=== PATIENT | female | born 1985 | race American Indian/Alaskan Native ===

== ENCOUNTER 2024-05-12 19:23 | Observation (INO) | payer MEDICAID, SELFPAY ==
[2024-05-12] VITALS (7 sets, daily range): BP systolic 140–174; BP diastolic 95–123; PULSE 80–120; RESP 12–20; TEMP 36.2–36.4; O2SAT 93–100; BMI 18.3
--- NOTE | 2024-05-12 19:38 | EDNOTE_ITS ---
ED Overdose RME/HPI General Chief Complaint: Overdose Stated Complaint: OVERDOSE Time Seen by Provider: 05/12/24 19:37 Source: EMS Arrival date/time: 05/12/24 19:23 Mode of arrival: EMS RME / HPI RME / HPI Narrative: DR. WEBSTER MAIN ED EVALUATION: 39 year old female with past medical history significant for IV drug use presents to the Emergency Department [facility] with complaint of accidental drug overdose prior to arrival. Patient was found in a 'crackhouse' and found on the floor with a needle on her arm by police. Police gave Narcan because the patient had diminished breathing and mentation. EMS also gave more Narcan and patient is sleepy but arousable to voice. She answers 1-2 word answers even when encouraged to speak more. No complaints by the patient. Patient denies any suicidal ideation or other symptoms at this time. Related Data Previous Rx's ?Medication ?Instructions ?Recorded ascorbic acid (vitamin C) 250 mg 500 mg (2 x 250 mg) P O BID #60 tabs 11/28/20 tablet (Vitamin C) sulfamethoxazole 800 1 tab PO BID #20 tabs mg-trimethoprim 160 mg tablet (Bactrim DS) zinc sulfate 50 mg zinc (220 mg) 220 mg (4.4 x 50 mg z inc (220 mg)) 11/28/20 capsule PO QDAY #30 caps Allergies Allergy/AdvReac Type Severity Reaction Status Date / Time No Known Allergies Allergy Verified 11/11/23 15:22 Review of Systems Review of Systems Systems Reviewed: All systems reviewed, normal except as documented Past Medical History Past Medical History NEUROLOGIC: Negative Neurological Disorders, Cerebrovascular Accident, Transient Ischemic Attacks (TIA), Dementia, Alzheimer's Disease, Parkinson's Disease, Brain Tumor, Meningitis, Seizures, Epilepsy, Multiple Sclerosis, Cerebral Palsy, Amyotrophic Lateral Sclerosis (ALS/Rosalva Gehrig's), Guillain-[place] Syndrome, Spina Bifida, Paralysis, Peripheral Neuropathy, Hsieh's Palsy, Subdural Hematoma, Migraine, Head Trauma, Spinal Cord Injury or Traumatic Brain Injury CARDIAC: Negative Cardiac Disorders, Myocardial Infarction, Cardiac Arrhythmia, Atrial Fibrillation, Angina, Heart Murmur, Coronary Artery Disease, Atherosclerotic Heart Disease, Peripheral Vascular Disease, Hypercholesterolemia, Aneurysm, Congestive Heart Failure, Congenital Heart Disease, Valvular Heart Disease, Rheumatic Fever, Cardiomyopathy, Edema, Pericarditis, Cellulitis, Deep Vein Thrombosis, Hypertension, Hypotension or Varicose Veins RESPIRATORY: Positive Asthma; Negative Chronic Obstructive Pulmonary Disease (COPD), Bronchitis, Emphysema, Pneumonia, Pulmonary Fibrosis, Cystic Fibrosis, Pulmonary Embolism or Pulmonary Edema GASTROINTESTINAL: Negative Gastrointestinal Disorders, Cirrhosis, Pancreatitis, Celiac Disease, Gall Bladder Disease, Gastrointestinal Bleed, Esophageal Va rices, Starkey's Esophagus, Colitis, Ulcerative Colitis, Diverticulitis, Diverticulosis, Ulcer, Colorectal Cancer, Irritable Bowel, Crohn's Disease, Obstructive Bowel, Hiatal Hernia, Hemorrhoids, Gastroesophageal Reflux Disease or Obesity GENITOURINARY: Negative Genitourinary Disorders, Renal Disease, Kidney Stones, Polycystic Kidney Disease, Neurogenic Bladder, Inguinal Hernia, Dialysis, Prostate Cancer or Benign Prostatic Hyperplasia REPRODUCTIVE: Positive Previous Pregnancies; Negative Breast Cancer or Testicular Cancer MUSCULOSKELETAL: Negative Musculoskeletal Disorders, Muscular Dystrophy, Myasthenia Gravis, Marfan's Syndrome, Bone Cancer, Arthritis, Rheumatoid Arthritis, Osteoporosis, Degenerative Disk Disease, Gout, Scoliosis, Fibromyalgia, Fractures, Degenerative Joint Disease, Osteomyelitis or Poliovirus ENT: Negative Cataracts, Glaucoma, Blind, Retinal Detachment, Macular Degeneration, Ear Infection, Deafness, Head Trauma or Eye Prosthesis ENDOCRINE: Negative Endocrine Disorders, Diabetes Mellitus Type 1, Diabetes Mellitus Type 2, Hypoglycemia, [place]'s Syndrome, [place]'s Disease, Hyperthyroidism, Hypothyroidism, Parathyroid Disease, Pituitary Disease, Systemic Lupus Erythematosus, Syndrome of Inappropriate Antidiuretic Hormone (SIADH), Adrenal Disease or Graves' Disease HEMATOLOGIC: Negative Blood Disorders, Anemia, Leukemia, Hemophilia, Thalassemia, Sickle Cell Disease or Clotting Problems PSYCHO/SOCIAL: Negative Psychiatric Problems, Schizophrenia, Recreational Drug Use, Bipolar Disorder, Depression, Anxiety, Behavior Problems, Self-Mutilation, Attention Deficit Disorder, Attention Deficit Hyperactivity Disorder, Depression, Post Traumatic Stress Disorder or Eating Disorder OTHER HISTORY: Negative Autoimmune Disease, Autism, Blood Transfusions, Blood Transfusion Reaction, Anesthesia Reactions, Organ Transplant, Chemotherapy, Radiation Therapy, Hyperbaric Therapy, MRSA, VRSA, Human Immunodeficiency Virus (HIV), Chicken Pox, Measles, Mumps, Rubella (Tongan Measles), Pertussis, Clostridium Difficile, Cancer, Breast Cancer, Cervical Cancer, Colorectal Cancer, Lung Cancer, Ovarian Cancer, Prostate Cancer or Testicular Cancer Family History FAMILY HISTORY: Negative Family Psychiatric Problems, Family Respiratory Disorders, Family Cardiac Disorders, Family Gastrointestinal Problems, Family Cancer, Family Surgery or Family Anesthesia Reaction Surgical History SURGICAL: Positive Section; Negative Organ Transplant Social History SMOKING STATUS: Never smoker SUBSTANCE USE: methamphetamine ALCOHOL: Never ED Exam Narrative Physical exam: GENERAL APPEARANCE:? alert and oriented x 4, well-developed, well-nourished, no acute distress, patient is somnolent but arousable to voice HEENT: Normocephalic, atraumatic; pupils equal, round, reactive to light; EOMI; mucous membranes pink, moist; oropharynx clear NECK: Supple LUNGS: CTABL; no wheezes, no rales, no rhonchi HEART: Tachycardic, regular rhythm; normal S1, S2; no murmurs ABDOMEN: non distended; normal BS;? soft, no tenderness, no guarding, no rebound; no masses, no organomegaly, no hernia?? BACK:? no CVA tenderness EXTREMITIES:? atraumatic; no edema MUSCULOSKELETAL: No tenderenss along entire spine; no cervical spine tenderness, no thoracic spine tenderness, and no lumbar spine tenderness. NEUROLOGIC: awake; alert and oriented x4; cranial nerves II-XII grossly intact; no focal sensory or motor deficits PSYCHIATRIC:? appropriate mood and affect SKIN: warm, dry, normal color; no rashes; no sign of infections at all Course Course Course Narrative: 2116: Sepsis alert initiated. Orders made at this time are congruent with ED Adult Sepsis Order List. Re-evaluation is to be completed. 2133: Fluids started. 2203: Sepsis reassessment performed consisting of lab review, vitals, physical exam including auscultation of heart, lungs, and visual evaluation of capillary refills, mucosal membranes and extremities. 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 START 00 Care 05/12/24 20:16 Active Continuous Pulse Oximetry NOW Care 05/12/24 20:16 Completed IV [Insert IV] NOW Care 05/12/24 20:33 Active In and Out Catheter X1PRN Care 05/12/24 21:17 Active Insert IV NOW Care 05/12/24 21:17 Active NPO STAT Care 05/12/24 21:17 Active Strict Intake and Output Routine Care 05/12/24 21:[address] chest w con Stat Exams 05/12/24 21:[address] head/brain wo con Stat Exams 05/12/24 22:45 Completed XR chest 1V portable Stat Exams 05/12/24 21:16 Completed Acetaminophen Stat Lab 05/12/24 20:32 Completed Alcohol, Blood Medical Stat Lab 05/12/24 20:32 Completed Alcohol, Urine Stat Lab 05/12/24 19:41 Completed B-Type Natriuretic Peptide Stat Lab 05/12/24 20:32 Completed Basic Metabolic Panel Stat Lab 05/12/24 20:32 Completed Blood Culture (Lab) Stat Lab 05/12/24 21:45 Received CBC Stat Lab 05/12/24 20:32 Completed CMP [Comprehensive Metabolic Panel] Stat Lab 05/12/24 00:13 Completed Drug Screen,Urine Stat Lab 05/12/24 19:41 Completed HCG Qualitative,Urine Stat Lab 05/12/24 19:41 Completed LDH (Lactate Dehydrogenase) Stat Lab 05/12/24 20:32 Completed Lactate (Lactic Acid) Stat Lab 05/12/24 21:45 Completed Lactic Acid, 3 HR Stat Lab 05/13/24 01:11 Completed Lipase Stat Lab 05/12/24 20:32 Completed Magnesium Stat Lab 05/12/24 20:32 Completed Partial Thromboplastin Time Stat Lab 05/12/24 20:32 Completed Phosphorous Stat Lab 05/12/24 20:32 Completed Procalcitonin Stat Lab 05/12/24 20:32 Completed Prothrombin Time with INR Stat Lab 05/12/24 20:32 Completed Salicylate Stat Lab 05/12/24 20:32 Completed Troponin I Stat Lab 05/12/24 20:32 Completed Urinalysis Stat Lab 05/12/24 19:41 Completed Urine Culture Stat Lab 05/12/24 19:41 Received VBG [Venous Blood Gas] Stat Lab 05/12/24 21:45 Completed Dextrose 50% Syr [D50w Syringe Abboject] Med 05/12/24 21:28 Discontinued 50 ml IV X1 ONE Doxycycline Inj [Vibramycin Inj] 100 mg Med 05/12/24 21:35 Discontinued Sodium Chloride 0.9% (Pop) [NS 0.9% mini bag] 100 ml IV X1 Ondansetron Inj [Zofran Inj] Med 05/12/24 21:28 Discontinued 4 mg IV X1 ONE Piper/Tazo Inj [Zosyn Inj] 4.5 gm Med 05/12/24 21:20 Discontinued Sodium Chloride 0.9% [Ns] 100 ml IV X1 Sodium Chloride 0.9% 1000 ml [Ns] 1,000 ml Med 05/12/24 20:16 Discontinued IV 999 mls/hr Sodium Chloride 0.9% 1000 ml [Ns] 2,055 ml Med 05/12/24 21:16 Discontinued IV 2,055 mls/hr Vancomycin Inj 1,000 mg Med 05/13/24 00:54 Discontinued Sodium Chloride 0.9% 250 ml [Ns] 250 ml IV X1 cefTRIAXone [Rocephin] 1,000 mg Med 05/12/24 21:19 Discontinued SODIUM CHLORIDE 0.9% (Popper) [Ns 0.9% (P)] 50 ml IV X1 hydrALAZINE INJ [Apresoline Inj] Med 05/12/24 21:04 Discontinued 10 mg IV X1 ONE Oxygen Delivery NOW RT 05/12/24 21:17 Active Reevaluation(s) Reevaluation #1: Patient is somnolent but arousable to voice. However, she answers 1-2 word answers even when encouraged to speak more. No complaints by the patient. Blood glucose is 54. Time: 21:25 Vital Signs Vital signs: Vital Signs Temperature 97.1 F 05/12/24 19:37 Pulse Rate 108 H 05/12/24 19:37 Respiratory Rate 18 05/12/24 19:37 Blood Pressure 140/104 H 05/12/24 19:37 Pulse Oximetry (%) 97 05/12/24 19:37 Oxygen Delivery Method Room Air 05/12/24 19:37 Procedures -ED EKG Interpretation #1: Date of EK05/12/24 Time of EK:22 Rate: 121 Interpretation: Interpreted by me Additional EKG comment: sinus tachycardia, rate 121, normal axis, no ectopy, LVH, QTc 371, QRS 88 Overdose MDM Narrative MDM Narrative:: 00:[address] Cleary regarding the pt. He kindly agreed to see the pt for possible admission. Pt has sepsis without a source. She most likely has endocarditis. I've ordered vanco IV and pt has already received zosyn and doxy IVPB. I, Anna Catalan, am scribing for and in the presence of Dr. Webster. Patient data External records reviewed:: EMS form Clinical information provided by:: patient and EMS Social determinants that could affect healthcare access:: substance use (IV drug use) Patient has the following chronic illnesses:: IV drug use How is presenting disease/condition affected by chronic disease/condition?: caused by Evaluation data The following diagnostics were reviewed and interpreted by me:: lab results and radiology exam(s) Lab and/or radiology exams considered but not ordered:: none Interpretation Summary: Leukocytosis, WBC 26 Hypoglycemia, blood glucose 41 1 view portable chest xray My interpretation: bilateral perihilar infiltrates, bronchitis pattern, no diaphragmatic edge Examination: CT brain head without contrast. Date and time of exam:May 12, 2024, 11:21 PM Indications: Altered mental status today Findings: No significant ventricular enlargement. Intra-axial or extra-axial hemorrhage density is not seen. No mass effect or midline shift Basal cisterns are not remarkable. Fourth ventricle is midline. Cranial vault intact. Significant chronic sinusitis Impression: Negative for acute hemorrhage, mass effect or midline shift Dictated By: Jason Siegel MD Examination: CT chest with intravenous contrast Exam date and time: May 12, 2024, 11:26 PM Indications: Coughing beginning 3 days ago Findings: No thoracic aortic aneurysm No pulmonary artery filling defects No paratracheal tracheobronchial or bronchopulmonary adenopathy 7 mm calcified nodule left lower lobe image 103 6 mm calcified pulmonary nodule lower lobe image 237 No pulmonary edema or pneumonia Pneumobilia Absent gallbladder Liver is mildly irregular in contour No pancreatic mass or peripancreatic edema Moderate scarring left kidney Bilateral old rib fractures Impression: Negative for thoracic aortic aneurysm Negative for pulmonary artery emboli No mediastinal lymphadenopathy No pneumonia or pulmonary edema Dictated By: Jason Siegel MD Examination: AP chest single view Exam date and time: May 12, 2024 at 8:20 PM Indications: Coughing chest pain today Findings: Normal heart size Lungs are clear The osseous structures are intact, old appearing bilateral rib fractures Impression: No active disease Dictated By: Jason Siegel MD Medications / Prescriptions Medications or Prescriptions considered but not ordered:: none Medication administrations:: Medication Administration History Acetaminophen (Acetaminophen 325 Mg Tablet) 650 mg PO Q6H PRN PRN Reason: Fever >100 or pain 1-3 Stop: 06/12/24 02:29 Heparin Sodium (Porcine) (Heparin Sod Inj 5000 Unit/Ml Vial) 5,000 unit SC Q12H [facility] Stop: 05/27/24 08:59 Potassium Chloride (Kcl Ivpb) 10 meq in 100 mls @ 100 mls/hr IV Q1H [facility] Stop: 05/13/24 07:14 Last Admin: 05/13/24 04:58 Dose: 100 mls/hr Documented By: Infusion: 05/13/24 04:53 Dose: Infused Documented By: Admin: 05/13/24 03:53 Dose: 100 mls/hr Documented By: SIMRAN Ceftriaxone Sodium 2,000 mg/ (Sodium Chloride) 50 mls @ 100 mls/hr IV QDAY [facility] Stop: 05/20/24 05:06 Pharmacy Consult (Vancomycin Pharmacy To Dose 1 Each Each) 1 each IV QDAY [facility] Stop: 06/12/24 08:59 Discontinued Medications Dextrose (Dextrose 50%-Water Inj 50 Ml Syringe) 50 ml IV X1 ONE Stop: 05/12/24 21:29 Last Admin: 05/12/24 21:44 Dose: 50 ml Documented By: SIMRAN Hydralazine HCl (Hydralazine Inj 20 Mg/Ml Vial) 10 mg IV X1 ONE Stop: 05/12/24 21:05 Last Admin: 05/12/24 21:40 Dose: 10 mg Documented By: SIMRAN Sodium Chloride (Ns) 1,000 mls @ 999 mls/hr IV .Q1H1M ONE Stop: 05/12/24 21:16 Last Infusion: 05/12/24 21:36 Dose: Infused Documented By: Admin: 05/12/24 20:35 Dose: 999 mls/hr Documented By: LB Sodium Chloride (Ns) 2,055 mls @ 2,055 mls/hr 30 ml/kg infuse over 60 min (2055 ml) IV .Q1H ONE Stop: 05/12/24 22:15 Last Infusion: 05/12/24 22:34 Dose: Infused Documented By: Admin: 05/12/24 21:34 Dose: 2,055 mls/hr Documented By: SIMRAN Ceftriaxone Sodium 1,000 mg/ (Sodium Chloride) 50 mls @ 100 mls/hr IV X1 ONE Stop: 05/12/24 21:48 Piperacillin Sod/Tazobactam (Sod 4.5 gm/ Sodium Chloride) 100 mls @ 200 mls/hr IV X1 ONE Stop: 05/12/24 21:49 Last Infusion: 05/12/24 22:18 Dose: Infused Documented By: Admin: 05/12/24 21:48 Dose: 200 mls/hr Documented By: SIMRAN Doxycycline Hyclate 100 mg/ (Sodium Chloride) 100 mls @ 100 mls/hr IV X1 ONE Stop: 05/12/24 22:34 Last Infusion: 05/12/24 23:56 Dose: Infused Documented By: Admin: 05/12/24 22:56 Dose: 100 mls/hr Documented By: SIMRAN Vancomycin HCl 1,000 mg/ (Sodium Chloride) 250 mls @ 150 mls/hr IV X1 ONE Stop: 05/13/24 02:33 Last Admin: 05/13/24 01:24 Dose: 150 mls/hr Documented By: SIMRAN Ondansetron HCl (Ondansetron Inj 2 Mg/Ml Inj 2 Ml) 4 mg IV X1 ONE; Protocol Stop: 05/12/24 21:29 Last Admin: 05/12/24 21:39 Dose: 4 mg Documented By: SIMRAN Potassium Chloride (Potassium Chloride 20 Meq Tabcr) 40 meq PO X1 ONE Stop: 05/13/24 02:36 Last Admin: 05/13/24 03:50 Dose: Not Given Documented By: SIMRAN Non-Admin Reason: Discontinued see above if any Consultations Consultation(s) initiated? (list below): Yes Consultation #1 (Physician, Specialty, Details): see narrative Diagnosis Overdose Differential Diagnosis: poisoning by opiate or related narcotic, drug overdose, accidental drug ingestion and other (methamphetamine abuse) Most likely diagnosis given after review of the tests above:: Endocarditis Leukocytosis Hypoglycemia Sepsis Admission Indicated Admission indicated?: indicated Admission Request Was there a request for admission?: Yes Admission Attestation Admission request attestation: Discussed case with [] from Hospitalist service regarding admission. Discussed patients ED course, exam findings, labs, and radiology results. The Hospitalist [agrees,declines] to accept the patient for admission. Disposition Plan Disposition Plan: Admit Critical Care Time Critical Care Time Critical Care Time: Yes Total Critical Care Time (min.): 30 Attestation: The high probability of sudden, clinically significant deterioration in the patient?s condition required the highest level of my preparedness to intervene urgently. The services I provided to this patient were to treat and/or prevent clinically significant deterioration. Services included the following: chart data review, reviewing nursing notes and/or old charts, documentation time, home service consultant collaboration regarding findings and treatment options, medication orders and management, direct patient care, vital sign assessments and ordering, interpreting and reviewing diagnostic studies and lab tests. Aggregate critical care time includes only time during which I was engaged in work directly related to the patient?s care, as described above, whether at bedside or elsewhere in the Emergency Department. It did not include time spent performing other reported procedures or the services of residents, students, nurses or physician assistants. Discharge Plan Plan Patient Disposition: Admit Acute Care w/in Hospital Problem List Clinical Impression: Endocarditis, Leukocytosis, Hypoglycemia, Sepsis
[2024-05-12 20:24] LABS: HCG Qualitative,Urine Negative
[2024-05-12] MEDS: SODIUM CHLORIDE 0.9% 1000 ML 1,000 ML 999 ML IV (20:35)
[2024-05-12 20:43] LABS: Basophils # (Auto) 0.1 Thou/mm3 (0.0-0.2); Basophils % (Auto) 0 % (0-2.5); Eosinophils % (Auto) 0 % (0-10); Hematocrit 37.5 % (36.0-46.0); Hemoglobin 11.3 g/dL (12.0-16.0); Immature Granulocytes % (Auto) 0 % (0-0); Immature Granulocytes Auto 0.11 Thou/mm3 (0.00-0.00); Lymphocytes # (Auto) 0.9 Thou/mm3 (1.0-4.8); Lymphocytes % (Auto) 4 % (10-50); Mean Corpuscular HGB Conc 30.1 g/dl (31.0-37.0); Mean Corpuscular Hemoglobin 22.1 pg (25.0-35.0); Mean Corpuscular Volume 73 fL (80-100); Monocytes % (Auto) 8 % (0-12); Neutrophils # (Auto) 22.9 Thou/mm3 (1.8-7.7); Neutrophils % (Auto) 88 % (37-80); Nucleated Red Blood Cell % 0 /100 WBC (0); Platelet Count 398 Thou/mm3 (140-440); RDW Standard Deviation 49.1 fL (36.4-46.3); Red Blood Count 5.11 Miln/mm3 (4.00-5.20)
[2024-05-12 21:11] LABS: Acetaminophen < 2.0 mcg/mL (10.0-20.0); Alcohol, Blood Medical < 3.0 mg/dL (0-10.0); Anion Gap 13 (7-16); BUN/Creatinine Ratio 18 Ratio (12-20); Blood Urea Nitrogen 21 mg/dL (9-23); Calcium 10.1 mg/dL (8.3-10.6); Carbon Dioxide 23.4 mMol/L (20.0-31.0); Chloride 110 mMol/L (98-107); Creatinine (Component) 1.2 mg/dL (0.6-1.3); Estimated Creatinine Clearance 57.1 mL/min (>60); Osmolality,Calculated 290 (275-295); Potassium 3.6 mMol/L (3.4-5.1); Salicylate < 3.0 mg/dL; Sodium 146 mMol/L (136-145); eGFR 59 See Note
[2024-05-12 21:14] LABS: Glucose 41 mg/dL (74-106)
--- NOTE | 2024-05-12 21:16 | XR_ITS ---
Examination: AP chest single view Technique: AP portable semiupright chest single view Exam date and time: May 12, 2024 at 8:20 PM Indications: Coughing chest pain today Findings: Normal heart size Lungs are clear The osseous structures are intact, old appearing bilateral rib fractures Impression: No active disease
--- NOTE | 2024-05-12 21:17 | PC.NURSE ---
Sepsis alert called.
[2024-05-12 21:24] LABS: Alcohol, Urine Negative (Negative); Amphetamine/Methamp Scrn,U Positive (Negative); Barbiturate Screen,Urine Negative (Negative); Benzodiazepines Screen,Urine Negative (Negative); Benzoylecgonine Screen, Ur Negative (Negative); Fentanyl Screen,Urine Positive (Negative); Opiate Screen,Urine Negative (Negative); THC Screen,Urine Positive (Negative)
--- NOTE | 2024-05-12 21:33 | XR_ITS ---
Examination: CT chest with intravenous contrast 2-D sagittal and coronal reconstructions Exam date and time: May 12, 2024, 11:26 PM Indications: Coughing beginning 3 days ago CTDI:vol (mGy) 8.5 DLP: (mGycm) 294 Technique: Multiple axial sections of the thorax have been obtained. Sections have been obtained, 3 mm slice thickness. Mediastinal and lung density settings have been obtained. Intravenous contrast administered, 60 cc Isovue-370. 2-D sagittal, coronal images obtained. Low dose protocols were performed. One or more of the following dose reduction techniques were used; automated exposure control, adjustment of the mA and/or KV according to patient size, use of iterative reconstruction technique. Findings: No thoracic aortic aneurysm No pulmonary artery filling defects No paratracheal tracheobronchial or bronchopulmonary adenopathy 7 mm calcified nodule left lower lobe image 103 6 mm calcified pulmonary nodule lower lobe image 237 No pulmonary edema or pneumonia Pneumobilia Absent gallbladder Liver is mildly irregular in contour No pancreatic mass or peripancreatic edema Moderate scarring left kidney Bilateral old rib fractures Impression: Negative for thoracic aortic aneurysm Negative for pulmonary artery emboli No mediastinal lymphadenopathy No pneumonia or pulmonary edema
[2024-05-12] MEDS: SODIUM CHLORIDE 0.9% 2055 ML IV (21:34)
[2024-05-12] MEDS: ONDANSETRON INJ 2 MG/ML INJ 2 ML 4 MG IV (21:39)
[2024-05-12] MEDS: hydrALAZINE INJ 20 MG/ML VIAL 10 MG IV (21:40)
[2024-05-12] MEDS: DEXTROSE 50%-WATER INJ 50 ML SYRINGE IV (21:44)
[2024-05-12] MEDS: PIPER/TAZO INJ 4.5 GM in SODIUM CHLORIDE 0.9% 100 ML IV (21:48)
[2024-05-12 21:53] LABS: Base Excess, Venous -4 (-3-3); Lactate (Lactic Acid) 3.2 mMol/L (0.4-2.0); O2 Saturation, Venous 86 % (96-97); PCO2, Venous 48 mmHg (36-56); PO2, Venous 58 mmHg (15-58); pH, Venous 7.28 (7.33-7.66)
[2024-05-12 22:07] LABS: Partial Thromboplastin Time 22.2 Seconds (22.0-36.0); Prothrombin Time 11.1 Seconds (9.0-12.2)
[2024-05-12 22:14] LABS: Collection Type, Urine Clean Catch; WBC,Urine 0 /hpf (0-5)
[2024-05-12 22:25] LABS: Bacteria,Urine Rare; Bilirubin,Urine Negative (Negative); Blood,Urine Trace (Negative); Clarity,Urine Turbid (Clear/Hazy); Color,Urine Lt-Yellow (Lt Yel-Yel); Glucose, Urine Trace (Negative); Ketones,Urine Negative (Negative); Leukocyte Esterase,Urine Negative (Negative); Nitrite,Urine Negative (Negative); PH,Urine 6.5 (5.0-7.0); Protein,Urine 1+ (Neg - Trace); RBC,Urine 2 /hpf (0-3); Specific Gravity,Urine 1.017 (1.001-1.035); Squamous Epithelial Cell,Urine 2 /hpf (0-5); Urobilinogen,Urine Negative mg/dL (0.0-1.0)
[2024-05-12 22:33] LABS: B-Type Natriuretic Peptide < 20 pg/mL (0-100)
[2024-05-12 22:39] LABS: LDH (Lactate Dehydrogenase) 625 U/L (120-246); Lipase 41 U/L (12-53); Magnesium 2.4 mg/dL (1.6-2.6); Phosphorous 6.2 mg/dL (2.4-5.1); Procalcitonin 0.13 ng/ml (0.0-0.49)
[2024-05-12 22:41] LABS: Troponin I 0.069 ng/mL (0.0-0.045)
--- NOTE | 2024-05-12 22:45 | XR_ITS ---
Examination: CT brain head without contrast. 2-D sagittal coronal reconstructions Date and time of exam:May 12, 2024, 11:21 PM Indications: Altered mental status today CTDI: vol (mGy):50.4 DLP: (mGycm):990 Technique: Multiple CT axial sections of the brain have been obtained, 5 mm slice thickness. Contrast has not been administered. 2-D sagittal, coronal reconstructions have been obtained Low dose protocols were performed. One or more of the following dose reduction techniques were used; automated exposure control, adjustment of the mA and/or KV according to patient size, use of iterative reconstruction technique. Findings: No significant ventricular enlargement. Intra-axial or extra-axial hemorrhage density is not seen. No mass effect or midline shift Basal cisterns are not remarkable. Fourth ventricle is midline. Cranial vault intact. Significant chronic sinusitis Impression: Negative for acute hemorrhage, mass effect or midline shift
[2024-05-12] MEDS: DOXYCYCLINE INJ 100 MG in SODIUM CHLORIDE 0.9% (POP) 100 ML IV (22:56)
--- NOTE | 2024-05-12 23:17 | PC.NURSE ---
To ct-scan via gurney.
[2024-05-13] VITALS (28 sets, daily range): BP systolic 112–190; BP diastolic 79–123; PULSE 59–86; RESP 9–96; TEMP 36–36.8; O2SAT 93–100
[2024-05-13 00:50] LABS: Reflex Lactate? Y
[2024-05-13 01:00] LABS: Alanine Aminotransferase 292 U/L (10-49); Albumin, Serum 3.9 gm/dL (3.5-5.0); Albumin/Globulin Ratio 1.4 (1.2-2.2); Alkaline Phosphatase 94 U/L (46-116); Anion Gap 8 (7-16); Aspartate Amino Transferase 542 U/L (0-34); BUN/Creatinine Ratio 20 Ratio (12-20); Bilirubin,Total 0.3 mg/dL (0.3-1.2); Blood Urea Nitrogen 18 mg/dL (9-23); Calcium 8.1 mg/dL (8.3-10.6); Calcium (Corrected) 8.2 mg/dL (8.5-10.1); Chloride 108 mMol/L (98-107); Creatinine (Component) 0.9 mg/dL (0.6-1.3); Estimated Creatinine Clearance 76.2 mL/min (>60); Globulin 2.7 gm/dL (2.3-3.5); Glucose 109 mg/dL (74-106); Osmolality,Calculated 282 (275-295); Potassium 4.2 mMol/L (3.4-5.1); Sodium 140 mMol/L (136-145); Total Protein 6.6 gm/dL (5.7-8.2); eGFR > 60 See Note
[2024-05-13] MEDS: Vancomycin Inj 1,000 MG in SODIUM CHLORIDE 0.9% 250 ML 250 ML 150 MG IV (01:24)
[2024-05-13 01:29] LABS: Lactic Acid, 3 HR 0.9 mMol/L (0.4-2.0)
--- NOTE | 2024-05-13 02:38 | ESHP_ITS ---
<Statement entered by Andrew Osorio MD - 05/15/24 22:59> 39-year-old female with polysubstance abuse (methamphetamine and opiate), MRSA thigh abscess status post I&D and recent cholecystitis/choledocholithiasis requiring transfer to [place] for ERCP who presents did with generalized weakness after patient was found obtunded and a chronic callus with IV by her hand and subsequently came into the ER. In the ER, patient was noted to have sepsis secondary to UTI versus bacteremia/endocarditis given IV drug use. Furthermore, patient also noted to have slight elevation transaminitis for which we will obtain further workup. As of now, plan to start Rocephin 2 g daily and vancomycin pending cultures and admit patient to telemetry. I reviewed above note and agree with findings and plans. I have also personally examined the patient with medicine team and went over assessment and plan with medical team including internal grinder set up operator and resident physician. Documentation for date of: 05/13/24 HPI History of Present Illness History of present illness: HPI is limited as patient is poor historian. Most of history obtained via chart review Pamela is a 39 y/o female with PMHx of polysubstance abuse (meth, opioids, THC), MRSA thigh abscess, cholecystitis sees possible requiring ERCP, was transferred to [facility]) who comes in after being found obtunded in a crack house with IV and high suspicion for drug use. She was found on the floor with an IV by her hand. Upon arrival to ED she was obtunded and was given Narcan by the police as well as EMS. She was apparently able to respond to some questions with verbal commands. Patient was requesting water that she was a bit nauseous. She did not want to speak much and just want to drink water. Denies any medical history or problems. She says she has no chest pain or shortness of breath. No other complaints at this time ED course: Came to the ED with temperature of 97.1, heart rate 108, respiratory of 18, blood pressure 140/104, saturating 97% on room air. He was worked up and was found to have a white count of 0.6, hemoglobin 11.3, platelets 398, sodium 146, potassium 3.6, BUN/creatinine 21 and 1.2 respectively, glucose 41, bicarb 23, VBG pH 7.28, pCO2 48, lactate 3.2, phosphorus 6.2, troponin 0.069, LDH 624, magnesium 2.4, lipase 41, T. bili 0.3, calcium 8.2 check fentanyl, meth, marijuana. Urinalysis showed rare bacteria. Patient was given 3 L normal saline, Zofran x 1, hydralazine 10 mg x 1, D50 x 1, Zosyn, Doxy, Vanco. Medicine was consulted and patient admitted to floors Past medical history: As above Surgical history limited Allergies: Limited Meds: Limited Family history: Limited Social history: Unable to determine where patient lives and other social factors, history of polysubstance abuse. Review of Systems Review of Systems Narrative Review of Systems: ROS is limited as otherwise negative unless stated directly in the HPI as patient is poor historian Exam Vital Signs Temp Pulse Resp BP Pulse Ox O2 Del Method O2 Flow Rate 98.2 F 75 18 124/89 H 95 Room Air 0 05/13/24 00:51 05/13/24 01:00 05/13/24 01:00 05/13/24 01:00 05/13/24 01:00 05/13/24 01:00 05/13/24 01:00 Narrative Exam Limited exam as patient does not want to be examined General: AAOx2, in mild distress, patient has buzzcut hairstyle, unable to answer majority of questions HEENT: Moist mucous membranes, PERRLA, pupils constricted, hair is shaved to buzzcut length Cardiovascular: Possible murmur heard over left upper sternal border, regular rate and rhythm, +2 radial pulses Pulmonary: CTAB bilat no cough, no wheezing GI: No tenderness to light or deep palpitation, no guarding, rigidity, rebound tenderness or distension Extremities: No presence of trace or pitting edema in lower extremities bilaterally, dorsalis pedis pulses +2 bilaterally, unable to fully visualize pack [place] Neuro: AAOx2 Psych: Uncooperative Results: Labs 05/13/24 03:08 05/13/24 03:08 Labs: Short CBC 05/12/24 Range/Units 20:32 WBC 26.0 H (3.6-11.0) Thou/mm3 Hgb 11.3 L (12.0-16.0) g/dL Hct 37.5 (36.0-46.0) % Plt Count 398 (140-440) Thou/mm3 BMP 05/12/24 05/12/24 00:13 20:32 Sodium 140 146 H Potassium 4.2 3.6 D Chloride 108 H 110 H Carbon Dioxide 24.0 23.4 BUN 18 21 Creatinine 0.9 1.2 Glucose 109 H 41 L* D Calcium 8.1 L 10.1 D Cardiac Enzymes 05/12/24 Range/Units 20:32 Troponin I 0.069 H* (0.0-0.045) ng/mL Liver Function 05/12/24 Range/Units 00:13 Total Bilirubin 0.3 (0.3-1.2) mg/dL AST 542 H* (0-34) U/L ALT 292 H (10-49) U/L Alkaline Phosphatase 94 (46-116) U/L Albumin 3.9 (3.5-5.0) gm/dL Urine 05/12/24 Range/Units 19:41 Urine Color Lt-Yellow (Lt Yel-Yel) Urine Clarity Turbid A (Clear/Hazy) Urine pH 6.5 (5.0-7.0) Ur Specific [place] 1.017 (1.001-1.035) Urine Protein 1+ A (Neg - Trace) Urine Glucose (UA) Trace (Negative) ABG Interpretation ABG results: 05/12/24 21:45 VBG pH 7.28 L VBG pCO2 48 VBG pO2 58 VBG Base Excess -4 L Quality Measures Quality Measures sepsis Current suspected stage: sepsis Possible source: unknown Blood cultures ordered: yes Antibiotic ordered: Yes Medications Home Medications and Allergies Allergies Allergy/AdvReac Type Severity Reaction Status Date / Time No Known Allergies Allergy Verified 11/11/23 15:22 Visit Medications Acetaminophen (Acetaminophen 325 Mg Tablet) 650 mg PO Q6H PRN PRN Reason: Fever >100 or pain 1-3 Stop: 06/12/24 02:29 Heparin Sodium (Porcine) (Heparin Sod Inj 5000 Unit/Ml Vial) 5,000 unit SC Q12H JOSIAH Stop: 05/27/24 08:59 Potassium Chloride (Potassium Chloride 20 Meq Tabcr) 40 meq PO X1 ONE Stop: 05/13/24 02:36 Discontinued Medications Dextrose (Dextrose 50%-Water Inj 50 Ml Syringe) 50 ml IV X1 ONE Stop: 05/12/24 21:29 Last Admin: 05/12/24 21:44 Dose: 50 ml Hydralazine HCl (Hydralazine Inj 20 Mg/Ml Vial) 10 mg IV X1 ONE Stop: 05/12/24 21:05 Last Admin: 05/12/24 21:40 Dose: 10 mg Sodium Chloride (Ns) 1,000 mls @ 999 mls/hr IV .Q1H1M ONE Stop: 05/12/24 21:16 Last Infusion: 05/12/24 21:36 Dose: Infused Sodium Chloride (Ns) 2,055 mls @ 2,055 mls/hr 30 ml/kg infuse over 60 min (2055 ml) IV .Q1H ONE Stop: 05/12/24 22:15 Last Infusion: 05/12/24 22:34 Dose: Infused Ceftriaxone Sodium 1,000 mg/ (Sodium Chloride) 50 mls @ 100 mls/hr IV X1 ONE Stop: 05/12/24 21:48 Piperacillin Sod/Tazobactam (Sod 4.5 gm/ Sodium Chloride) 100 mls @ 200 mls/hr IV X1 ONE Stop: 05/12/24 21:49 Last Infusion: 05/12/24 22:18 Dose: Infused Doxycycline Hyclate 100 mg/ (Sodium Chloride) 100 mls @ 100 mls/hr IV X1 ONE Stop: 05/12/24 22:34 Last Infusion: 05/12/24 23:56 Dose: Infused Vancomycin HCl 1,000 mg/ (Sodium Chloride) 250 mls @ 150 mls/hr IV X1 ONE Stop: 05/13/24 02:33 Last Admin: 05/13/24 01:24 Dose: 150 mls/hr Ondansetron HCl (Ondansetron Inj 2 Mg/Ml Inj 2 Ml) 4 mg IV X1 ONE; Protocol Stop: 05/12/24 21:29 Last Admin: 05/12/24 21:39 Dose: 4 mg Assessment & Plan Plan Assessment Pamela is a 39 y/o female with PMHx of polysubstance abuse (meth, opioids, THC), MRSA thigh abscess, cholecystitis sees possible requiring ERCP, was transferred to [facility]) who is evaluated for SIRS criteria 2 out of 4, and elevated troponin. #SIRS criteria, 2 out of 4 #History of MRSA abscess DDx: Bloodstream infection, endocarditis, UTI Patient does have high risk for bloodstream infections and including endocarditis due to IV drug history UTI did show rare bacteria however, unable to determine if patient is symptomatic and also patient does not have leukocyte esterase or nitrates Patient has had positive MRSA thigh abscess in the past Vitals can be scattered due to patient having polysubstances seen in urine drug screen Patient will need MRSA and broad coverage, will cover with antibiotics as if this is endocarditis Attempted for [place] criteria for endocardit UTI patient is high risk for 1 patient is at high risk for Plan: ? Rocephin 2 g IV and Vanco ? Follow-up MRSA screen ? Follow-up blood cultures ? Follow-up urine culture ? Tylenol for antipyretics ? TTE #Elevated troponins .069 -> 0.100 Patient is experiencing chest pain, likely related to demand ischemia Plan: ? Trend troponin until peak #Elevated transaminases #Elevated ALP #History of cholecystitis AST 542 and ALT 292, could be related to overdose, shock ~600s for ALP High risk for hepatitis considering drug history Possible episode of cholecystitis may have required ERCP as there was documentation the patient was transferred as patient had dilatation of CBD Patient is at high risk for clots in unusual sites of liver as patient does have drug history Imaging will be required to measure liver vasculature Plan: ? Trend with CMP ? Hepatitis panel ? Consider measuring Tylenol level ? Follow up Liver ultrasound #Hyperphosphatemia #Hypocalcemia Plan: ? PTH ? Trend lytes #Drug Overdose #Polysubstance abuse Urine drug screen shows fentanyl, THC, meth Patient was found obtunded with IV near hand Was given Narcan twice Plan: ? Consider social media intern referral #Health Maintenance Disposition: Observation?telemetry DVT prophylaxis: Heparin every 12 hours GI prophylaxis: None indicated at this time Diet: Pending swallow eval CODE STATUS: Full Patient seen and care discussed with my attending physician, Dr. Devon Yeung, PGY-1
[2024-05-13 03:13] LABS: Basophils % (Auto) 0 % (0-2.5); Eosinophils % (Auto) 0 % (0-10); Hematocrit 32.1 % (36.0-46.0); Hemoglobin 9.8 g/dL (12.0-16.0); Immature Granulocytes % (Auto) 0 % (0-0); Immature Granulocytes Auto 0.05 Thou/mm3 (0.00-0.00); Lymphocytes # (Auto) 1.1 Thou/mm3 (1.0-4.8); Lymphocytes % (Auto) 5 % (10-50); Mean Corpuscular HGB Conc 30.5 g/dl (31.0-37.0); Mean Corpuscular Volume 72 fL (80-100); Monocytes # (Auto) 0.6 Thou/mm3 (0.0-0.8); Monocytes % (Auto) 3 % (0-12); Neutrophils # (Auto) 18.9 Thou/mm3 (1.8-7.7); Neutrophils % (Auto) 92 % (37-80); Nucleated Red Blood Cell % 0 /100 WBC (0); Platelet Count 287 Thou/mm3 (140-440); RDW Standard Deviation 47.7 fL (36.4-46.3); Red Blood Count 4.45 Miln/mm3 (4.00-5.20); White Blood Count 20.6 Thou/mm3 (3.6-11.0)
[2024-05-13] MEDS: POTASSIUM CHL 10 mEq IVPB 10 MEQ/100 ML BAG 100 MEQ IV ×3 (03:53→06:07)
[2024-05-13 03:58] LABS: Alanine Aminotransferase 279 U/L (10-49); Albumin, Serum 3.9 gm/dL (3.5-5.0); Albumin/Globulin Ratio 1.4 (1.2-2.2); Alkaline Phosphatase 92 U/L (46-116); Anion Gap 8 (7-16); Aspartate Amino Transferase 422 U/L (0-34); BUN/Creatinine Ratio 20 Ratio (12-20); Bilirubin,Total 0.3 mg/dL (0.3-1.2); Blood Urea Nitrogen 18 mg/dL (9-23); Calcium 8.2 mg/dL (8.3-10.6); Calcium (Corrected) 8.3 mg/dL (8.5-10.1); Carbon Dioxide 25.2 mMol/L (20.0-31.0); Cardiac Risk Estimate 2.1 RATIO (3.7-5.6); Chloride 108 mMol/L (98-107); Cholesterol 118 mg/dL (132-200); Creatinine (Component) 0.9 mg/dL (0.6-1.3); Estimated Creatinine Clearance 76.2 mL/min (>60); Globulin 2.8 gm/dL (2.3-3.5); Glucose 107 mg/dL (74-106); HDL Cholesterol 57 mg/dL (40-60); LDL Cholesterol,Calculated 54 mg/dL (0-130); Magnesium 1.8 mg/dL (1.6-2.6); Osmolality,Calculated 283 (275-295); Potassium 4.2 mMol/L (3.4-5.1); Sodium 141 mMol/L (136-145); Thyroid Stimulating Hormone 0.45 uIU/mL (0.55-4.78); Total Protein 6.7 gm/dL (5.7-8.2); Triglycerides 33 mg/dL (30-150); eGFR > 60 See Note
--- NOTE | 2024-05-13 05:59 | XR_ITS ---
Examination: Abdomen sonogram, complete Date and time of exam: May 13, 2024 1555 hrs. Indications: Elevated liver function tests on laboratory examination today. Technique: Multiple real-time grayscale transabdominal sonographic images of the abdomen have been obtained. Findings: No diagnostic visualization of the gallbladder Common bile duct 0.70 cm no stones. Pancreatic head 1.8 cm Aorta obscured by bowel gas Liver 13 cm no liver lesions Normal hepatopedal portal venous flow Patent IVC Right kidney 10.9 cm cortex 2.3 cm Left kidney 11.7 standard cortex 3.1 cm No hydronephrosis Spleen 10 cm Impression: Common bile duct 0.70 cm no stones No focal liver lesions
[2024-05-13] MEDS: CEFTRIAXONE IV (06:08)
[2024-05-13] MEDS: SODIUM CHLORIDE 0.9% IV (06:08)
--- NOTE | 2024-05-13 06:43 | PC.NURSE ---
K+ 4.2, Dr. Castillo [facility], In 4th k lisa.
[2024-05-13] MEDS: Magnesium Sulfate 2 GM Ivpb 2 GM/50 ML BAG IV (09:46)
[2024-05-13] MEDS: HEPARIN SOD INJ 5000 UNIT/ML VIAL SC ×2 (09:47→20:24)
[2024-05-13] MEDS: PANTOPRAZOLE INJ 40 MG VIAL IV (09:47)
[2024-05-13] MEDS: CALCIUM GLUCONATE 10% INJ 1 GM/10 ML VIAL IV (09:50)
--- NOTE | 2024-05-13 09:50 | PCS.ST ---
Swallow evaluation attempted. Pt presented emesis immediately after trials of water. Recommendation to continue NPO. Swallowing evaluation deferred for later today or tomorrow. Pt feeling nauseous, however, she continues requesting water. Few ice chips okay, no liquids.
[2024-05-13 10:03] LABS: Creatine Kinase 82 U/L (34-171); Troponin I 0.077 ng/mL (0.0-0.045)
--- NOTE | 2024-05-13 11:26 | ESPR_ITS ---
Documentation for date of: 05/13/24 Subjective Subjective Interval history: Patient is an overnight admit. Patient seen and examined at bedside. Patient states that she has been using IV meth for many years and switches from IV to smoking it from time to time. Patient states that she is feeling very nauseous and unable to talk very much. Patient did not pass swallow screen because she was unable to tolerate oral diet and was vomiting during swallow screen evaluation. Patient states that she has a headache as well and minimally engages in conversation and answering questions. Vitals are stable labs are significant for WBC 20.6, calcium 8.3 and phosphate 6.2. Patient has no complaints other than feeling nausea and headache. Exam Vital Signs Temp Pulse Resp BP Pulse Ox O2 Del Method O2 Flow Rate 96.8 F 70 18 124/80 96 Room Air 0 05/13/24 06:22 05/13/24 06:22 05/13/24 06:22 05/13/24 06:22 05/13/24 06:22 05/13/24 06:22 05/13/24 01:00 Narrative Exam GENERAL: A&Ox3 . Awake, Not in acute distress however, mildy agitated NEURO: no focal neurological deficits HEENT: Atraumatic, Normocephalic. mucous membranes moist. Eyes open, symmetrical, & clear HEART: Normal Heart Sounds LUNGS: Clear to auscultation with no wheezing or crackles. ABDOMEN: soft, non-distended, non-tender, bowel sounds heard, no guarding or rebound tenderness SKIN: No Rash or ecchymoses EXTREMITIES: No edema, tenderness, able to move all 4 extremities, pedal pulses palpated Objective Labs 05/15/24 04:10 05/15/24 04:10 Labs: Laboratory Results - last 24 hr 05/12/24 05/12/24 05/12/24 00:13 19:41 20:32 WBC 26.0 H RBC 5.11 Hgb 11.3 L Hct 37.5 MCV 73 L MCH 22.1 L MCHC 30.1 L RDW Std Deviation 49.1 H Plt Count 398 Neut % (Auto) 88 H Lymph % (Auto) 4 L [place] % (Auto) 8 Eos % (Auto) 0 Baso % (Auto) 0 Neut # (Auto) 22.9 H Lymph # (Auto) 0.9 L [place] # (Auto) 2.0 H Eos # (Auto) 0.0 Baso # (Auto) 0.1 Immature Gran # (Auto) 0.11 H Absolute Nucleated RBC 0.00 Immature Gran % 0 Nucleated RBC % 0 PT 11.1 INR 1.0 APTT 22.2 VBG pH VBG pCO2 VBG pO2 VBG O2 Sat (Deepali) VBG Base Excess Sodium 140 146 H Potassium 4.2 3.6 D Chloride 108 H 110 H Carbon Dioxide 24.0 23.4 Anion Gap 8 13 BUN 18 21 Creatinine 0.9 1.2 Estim Creat Clear Calc 76.2 57.1 L eGFR > 60 59 L BUN/Creatinine Ratio 20 18 Glucose 109 H 41 L* D Calculated Osmolality 282 290 Lactic Acid Calcium 8.1 L 10.1 D Corrected Calcium 8.2 L Phosphorus 6.2 H Magnesium 2.4 Total Bilirubin 0.3 AST 542 H* ALT 292 H Alkaline Phosphatase 94 Lactate Dehydrogenase 625 H Total Creatine Kinase Troponin I 0.069 H* B-Natriuretic Peptide < 20 Total Protein 6.6 Albumin 3.9 Globulin 2.7 Albumin/Globulin Ratio 1.4 Triglycerides Cholesterol LDL Cholesterol, Calc HDL Cholesterol Cholesterol/HDL Ratio Lipase 41 Procalcitonin 0.13 TSH Ur Collection Type Clean Catch Urine Color Lt-Yellow Urine Clarity Turbid A Urine pH 6.5 Ur Specific [place] 1.017 Urine Protein 1+ A Urine Glucose (UA) Trace Urine Ketones Negative Urine Blood Trace Urine Nitrite Negative Urine Bilirubin Negative Urine Urobilinogen (Auto) Negative Ur Leukocyte Esterase Negative Urine RBC 2 Urine WBC 0 Ur Squamous Epith Cells 2 Urine Bacteria Rare Urine HCG, Qual Negative Salicylates < 3.0 Urine Opiates Screen Negative Urine Fentanyl Screen Positive A Acetaminophen < 2.0 L Ur Barbiturates Screen Negative U Amphetamin/Meth Scrn Positive A U Benzodiazepines Scrn Negative U Cocaine Metab Screen Negative U Marijuana (THC) Screen Positive A Urine Alcohol Negative Ethyl Alcohol < 3.0 Blood Bank Wristband ID 05/12/24 05/13/24 05/13/24 21:45 01:11 03:08 WBC 20.6 H D RBC 4.45 Hgb 9.8 L Hct 32.1 L MCV 72 L MCH 22.0 L MCHC 30.5 L RDW Std Deviation 47.7 H Plt Count 287 D Neut % (Auto) 92 H Lymph % (Auto) 5 L [place] % (Auto) 3 Eos % (Auto) 0 Baso % (Auto) 0 Neut # (Auto) 18.9 H Lymph # (Auto) 1.1 [place] # (Auto) 0.6 Eos # (Auto) 0.0 Baso # (Auto) 0.0 Immature Gran # (Auto) 0.05 H Absolute Nucleated RBC 0.00 Immature Gran % 0 Nucleated RBC % 0 PT INR APTT VBG pH 7.28 L VBG pCO2 48 VBG pO2 58 VBG O2 Sat (Deepali) 86 L VBG Base Excess -4 L Sodium 141 Potassium 4.2 D Chloride 108 H Carbon Dioxide 25.2 Anion Gap 8 BUN 18 Creatinine 0.9 Estim Creat Clear Calc 76.2 eGFR > 60 BUN/Creatinine Ratio 20 Glucose 107 H D Calculated Osmolality 283 Lactic Acid 3.2 H 0.9 Calcium 8.2 L D Corrected Calcium 8.3 L Phosphorus Magnesium 1.8 Total Bilirubin 0.3 AST 422 H ALT 279 H Alkaline Phosphatase 92 Lactate Dehydrogenase Total Creatine Kinase Troponin I 0.100 H* B-Natriuretic Peptide Total Protein 6.7 Albumin 3.9 Globulin 2.8 Albumin/Globulin Ratio 1.4 Triglycerides 33 Cholesterol 118 L LDL Cholesterol, Calc 54 HDL Cholesterol 57 Cholesterol/HDL Ratio 2.1 L Lipase Procalcitonin TSH 0.45 L Ur Collection Type Urine Color Urine Clarity Urine pH Ur Specific [place] Urine Protein Urine Glucose (UA) Urine Ketones Urine Blood Urine Nitrite Urine Bilirubin Urine Urobilinogen (Auto) Ur Leukocyte Esterase Urine RBC Urine WBC Ur Squamous Epith Cells Urine Bacteria Urine HCG, Qual Salicylates Urine Opiates Screen Urine Fentanyl Screen Acetaminophen Ur Barbiturates Screen U Amphetamin/Meth Scrn U Benzodiazepines Scrn U Cocaine Metab Screen U Marijuana (THC) Screen Urine Alcohol Ethyl Alcohol Blood Bank Wristband ID 05/13/24 09:32 WBC RBC Hgb Hct MCV MCH MCHC RDW Std Deviation Plt Count Neut % (Auto) Lymph % (Auto) [place] % (Auto) Eos % (Auto) Baso % (Auto) Neut # (Auto) Lymph # (Auto) [place] # (Auto) Eos # (Auto) Baso # (Auto) Immature Gran # (Auto) Absolute Nucleated RBC Immature Gran % Nucleated RBC % PT INR APTT VBG pH VBG pCO2 VBG pO2 VBG O2 Sat (Deepali) VBG Base Excess Sodium Potassium Chloride Carbon Dioxide Anion Gap BUN Creatinine Estim Creat Clear Calc eGFR BUN/Creatinine Ratio Glucose Calculated Osmolality Lactic Acid Calcium Corrected Calcium Phosphorus Magnesium Total Bilirubin AST ALT Alkaline Phosphatase Lactate Dehydrogenase Total Creatine Kinase 82 Troponin I 0.077 H* B-Natriuretic Peptide Total Protein Albumin Globulin Albumin/Globulin Ratio Triglycerides Cholesterol LDL Cholesterol, Calc HDL Cholesterol Cholesterol/HDL Ratio Lipase Procalcitonin TSH Ur Collection Type Urine Color Urine Clarity Urine pH Ur Specific [place] Urine Protein Urine Glucose (UA) Urine Ketones Urine Blood Urine Nitrite Urine Bilirubin Urine Urobilinogen (Auto) Ur Leukocyte Esterase Urine RBC Urine WBC Ur Squamous Epith Cells Urine Bacteria Urine HCG, Qual Salicylates Urine Opiates Screen Urine Fentanyl Screen Acetaminophen Ur Barbiturates Screen U Amphetamin/Meth Scrn U Benzodiazepines Scrn U Cocaine Metab Screen U Marijuana (THC) Screen Urine Alcohol Ethyl Alcohol Blood Bank Wristband ID Yes ABG Interpretation ABG results: 05/12/24 21:45 VBG pH 7.28 L VBG pCO2 48 VBG pO2 58 VBG Base Excess -4 L Quality Measures Quality Measures sepsis Current suspected stage: sepsis Possible source: unknown Blood cultures ordered: yes Antibiotic ordered: Yes Assessment & Plan Assessment Current Active Medications: Generic Name Dose Route Start Last Admin Trade Name Freq PRN Reason Stop Dose Admin Acetaminophen 650 mg 05/13/24 02:30 Acetaminophen 325 Mg Tablet PO 06/12/24 02:29 Q6H PRN Fever >100 or pain 1-3 Heparin Sodium (Porcine) 5,000 unit 05/13/24 09:00 05/13/24 09:47 Heparin Sod Inj 5000 Unit/Ml Vial SC 05/27/24 08:59 5,000 unit Q12H JOSIAH Administration Vancomycin/Sodium Chloride 200 mls @ 120 mls/hr 05/13/24 10:00 Vancomycin/Ns 1 Gm Ivpb IV 05/20/24 09:59 Q12H JOSIAH Ceftriaxone Sodium/Dextrose 2 gm in 50 mls @ 100 mls/hr 05/14/24 09:00 Rocephin/D5w 2gm IV 05/21/24 08:59 QDAY JOSIAH Ondansetron HCl 4 mg 05/13/24 10:32 Ondansetron Inj 2 Mg/Ml Inj 2 Ml IV 06/12/24 10:31 Q6HR PRN NAUSEA OR VOMITING Protocol Pantoprazole Sodium 40 mg 05/13/24 09:00 05/13/24 09:47 Pantoprazole Inj 40 Mg Vial IV 06/12/24 08:59 40 mg QDAY JOSIAH Administration Pharmacy Consult 1 each 05/13/24 09:00 Vancomycin Pharmacy To Dose 1 Each Each IV 06/12/24 08:59 QDAY PRN CONSULT Plan Pamela is a 39 y/o female with PMHx of polysubstance abuse (meth, opioids, THC), MRSA thigh abscess, cholecystitis sees possible requiring ERCP, was transferred to [facility]) who is evaluated for SIRS criteria 2 out of 4, and elevated troponin. #Sepsis, unknown source #SIRS criteria, 2/4- tachycardia and leukocytosis #concern for endocarditis, IV drug use #History of MRSA abscess, 2020 DDx: Bloodstream infection, endocarditis -Patient is high risk for bloodstream infections including endocarditis due to history of IV drug use for many years -Pt states she has been injecting and smoking meth for several years -urinalysis is positive for rare bacteria only and pt is asymptomatic -In 2020 Patient has had positive MRSA thigh abscess -Will review [place] criteria for endocarditis once echo is done, currently pt has 1 minor criteria only, BC are pending and echo is pending Plan: -prophylaxic Rocephin 2 g IV and Vanco started incase of endocarditis, will discontinue once BC or echo is negative -urine and blood cultures and MRSA pending -Tylenol for antipyretics -echo ordered #Elevated transaminases #Elevated ALP #History of cholecystitis -AST 542 and ALT 292, could be related to drug overdose, shock ~600s for ALP -High risk for hepatitis considering drug history -Pt is unable to confirm , per chart review Pt has hx of cholecytitis which required ERCP and pt was transferred due to CBD dilatation Plan: -Trend with CMP -Hepatitis panel pending -Tylenol level <2 -Liver ultrasound pending #microcytic anemia -Hgb 9.8, Hct 32.1 and MCV 72 -no signs of active bleeding -Iron panel ordered -monitor daily CBC #Elevated troponins - improved -troponins .069 -> 0.100 ->0.077 Patient is experiencing chest pain, likely related to demand ischemia #Hyperphosphatemia #Hypocalcemia -PTH pending -will monitor with daily labs #Drug Overdose #Polysubstance abuse -Urine tox is positive for fentanyl, THC, meth -Patient was found obtunded with IV near hand -Narcan given x2 and pt became more awake but still somnolent -refer to child welfare social worker -counseled patient against drug use #Health Maintenance Disposition: Observation?telemetry DVT prophylaxis: Heparin every 12 hours GI prophylaxis: None indicated at this time Diet: NPO, pt was unable to pass swallow screen due to nausea CODE STATUS: Full Assessment and plan discussed with my attending physician Dr. Vish Tao (PGY-1)- Internal medicine resident Attending Provider Attestation/Addendum Patient seen and examined at bedside with resident. Agree with assessment and plan as dictated above and have reviewed all relevant parts of medical record with team. Patient with sepsis with unknown source. No signs of endocarditis at this time, but if blood cultures return positive without reliable source, will need to continue with workup given patients risk factors. For now, patient more awake and alert at bedside. reattempt swallow eval and initiate diet when able. Jovon Wahl MD
[2024-05-13] MEDS: VANCOMYCIN/NS 1 GM IVPB 200 ML IV ×2 (11:38→21:18)
[2024-05-13 12:09] LABS: HIV (1&2) Antibody Rapid Non-Reactive
--- NOTE | 2024-05-13 15:55 | PC.SS ---
This is 39-year-old, , single female who presented to the ED after suffering an overdose. Patient appeared dirty. Patient appeared alert and oriented to self, place and situation. Patient was guarded, her mood was irritable and behavior was restless. Patient's thought process was logical and linear. Patient reported that she is homeless. She has been homeless for the last 5 years. Patient is independent with all ADLs, no DME use. Patient has no PCP. She refused to name a person as her emergency contact. Patient denied any mental health illnesses. Patient reported using cannabis. Patient was not receptive to explore her substance use. Patient requested to know how she came to the ED. SW explained that patient was found at house and was provided Narcan at that house by the [place] [employer]. SW attempted to explore substance use treatment and sobriety programs. Patient declined and reported that, I feel like you are all crooks. When medically cleared, patient will discharge to the community. She declined resources.
[2024-05-13 16:08] LABS: Ferritin 9 ng/mL (7.3-270.7); Iron 6 mcg/dL (50-170); Percent Iron Saturation 1 % (20-55); Total Iron Binding Capacity 397 mcg/dL (250-425); Unsaturated Iron Binding 391 (225-295)
--- NOTE | 2024-05-13 16:08 | EKG_ITS ---
[facility] Test Date: 2024-05-13 Pat Name: CORBIN ANSARI [facility] Medical Librarian: RUMA : 1985 Requested By: Alphonse Lacey Order Number: [id number] Reading MD: Alphonse Lacey Measurements Intervals [place] Rate: 57 P: 30 [place]: 151 QRS: 13 QRSD: 87 T: 40 QT: 464 QTc: 453 Interpretive Statements SINUS BRADYCARDIA MODERATE VOLTAGE CRITERIA FOR LVH, CONSIDER NORMAL VARIANT No previous ECG available for comparison /[id number]/S0/[id number]
[2024-05-13] MEDS: DEXTROSE 50%-WATER INJ 50 ML SYRINGE 25 ML IV (16:31)
[2024-05-13] MEDS: ONDANSETRON INJ 2 MG/ML INJ 2 ML 4 MG IV (16:43)
[2024-05-13] MEDS: ACETAMINOPHEN 325 MG TABLET 650 MG PO (20:27)
[2024-05-14] VITALS (8 sets, daily range): BP systolic 122–147; BP diastolic 82–98; PULSE 57–73; RESP 12–18; TEMP 36.6–37.1; O2SAT 96–99
--- NOTE | 2024-05-14 02:34 | ECHO_ITS ---
Transthoracic Echo Report Ht (in): 70 Wt (lb): 127 Exam Location: Portable Status: Inpatient Guest Advisor: PARISH Huffman^^^^ Indications: Procedure Performed: BP: 124 / 77 HR: 61 Rhythm: Sinus Technical Quality: Fair MEASUREMENTS (Male / Female) Normal Values 2D ECHO LV Diastolic Diameter PLAX 4.2 cm 4.2 - 5.9 / 3.9 - 5.3 cm LV Systolic Diameter PLAX 2.3 cm IVS Diastolic Thickness 1.1 cm 0.6 - 1.0 / 0.6 - 0.9 cm LVPW Diastolic Thickness 0.9 cm 0.6 - 1.0 / 0.6 - 0.9 cm LV Relative Wall Thickness 0.5 LVOT Diameter 1.4 cm Aortic Root Diameter 3.1 cm LA Systolic Diameter LX 3.2 cm 3.0 - 4.0 / 2.7 - 3.8 cm LV Ejection Fraction MOD BP 65.2 % >= 55 % LV Cardiac Index MOD BP 3492.0 cm?/min?m? LV Ejection Fraction MOD 4C 64.3 % LV Cardiac Index MOD 4C 3185.8 cm?/min?m? LV Ejection Fraction 4C AL 65.5 % LV Cardiac Index 4C AL 3222.3 cm?/min?m? LV Ejection Fraction MOD 2C 64.9 % LV Cardiac Index MOD 2C 3641.4 cm?/min?m? LV Ejection Fraction 2C AL 66.4 % LV Cardiac Index 2C AL 3770.4 cm?/min?m? LA Volume Index 61.2 cm?/m? 16 - 28 cm?/m? Ascending Aorta Diameter 3.2 cm DOPPLER AV Peak Velocity 156.3 cm/s AV Peak Gradient 9.8 mmHg AV Mean Gradient 8.0 mmHg AV Velocity Time Integral 34.8 cm LVOT Peak Velocity 119.5 cm/s LVOT Peak Gradient 5.7 mmHg LVOT Velocity Time Integral 26.4 cm LVOT Cardiac Index 1484.2 cm?/min?m? AV Area Cont Eq vti 1.2 cm? AV Area Cont Eq pk 1.2 cm? MV Area PHT 3.7 cm? MR Peak Velocity 359.0 cm/s MR Peak Gradient 51.6 mmHg Mitral E Point Velocity 75.9 cm/s Mitral A Point Velocity 66.6 cm/s Mitral E to A Ratio 1.1 LV E' Lateral Velocity 8.0 cm/s Mitral E to LV E' Lateral Ratio 9.5 LV E' Septal Velocity 8.2 cm/s Mitral E to LV E' Septal Ratio 9.3 TR Peak Velocity 253.3 cm/s TR Peak Gradient 25.7 mmHg PV Peak Velocity 80.3 cm/s PV Peak Gradient 2.6 mmHg RVOT Peak Velocity 76.9 cm/s FINDINGS Left Ventricle Normal left ventricular size, systolic function with no obvious regional wall motion abnormalities. The left ventricular albert are upper normal in thickness. Normal left ventricular diastolic filling pattern for age. The ejection fraction is visually estimated at 60-65 %. Right Ventricle The right ventricle is normal in size and systolic function. The estimated right ventricular systolic pressure, 38 mmHg. Left Atrium Moderately increased left atrial volume 61.2 mL/m?. Right Atrium The right atrium is normal by two-dimensional imaging, color flow and Doppler imaging with no structural abnormalities, no thrombus formation present. Atrial Septum The interatrial septum appears normal with no evidence of a shunt. Aorta The aorta is normal by two-dimensional, color flow and Doppler interrogation. Mitral Valve Rqig-sk-oxozevam mitral regurgitation. Mild mitral annular calcification. Aortic Valve Aortic valve sclerosis. Tricuspid Valve There is mild tricuspid valve regurgitation. Pulmonic Valve Trivial pulmonic valve regurgitation. Vessels The pulmonary artery appears normal. The inferior vena cava pulmonary and hepatic veins appear normal. Pericardium The pericardium is normal by two-dimensional imaging. There is no significant pericardial effusion. CONCLUSIONS Indication: Rule out endocarditis, No evidence of any valvular vegeations. TTE is suboptimal and consider ULISES if high index of suspicion. Normal LV size and function with EF 60-65% with mild LVH. Stage 1 diastolic dysfunction. Normal RV size and function. Estimated RVSP 38 mmHg. LA is moderately dilated. Mild MR and TR. Mild aortic valve sclerosis without stenosis. Edwin Bullock (Electronically Signed) Final Date: 14 May 2024 18:22
[2024-05-14 05:04] LABS: Hepatitis B Core Antibody IgM Non Reactive (Non React); Hepatitis B Surface Antigen Non Reactive (Non React); Hepatitis C Antibody Non Reactive (Non React)
[2024-05-14 06:22] LABS: Basophils # (Auto) 0.1 Thou/mm3 (0.0-0.2); Basophils % (Auto) 1 % (0-2.5); Eosinophils # (Auto) 0.1 Thou/mm3 (0.0-0.5); Eosinophils % (Auto) 1 % (0-10); Hematocrit 29.9 % (36.0-46.0); Hemoglobin 9.1 g/dL (12.0-16.0); Immature Granulocytes % (Auto) 0 % (0-0); Immature Granulocytes Auto 0.01 Thou/mm3 (0.00-0.00); Lymphocytes # (Auto) 2.4 Thou/mm3 (1.0-4.8); Lymphocytes % (Auto) 34 % (10-50); Mean Corpuscular HGB Conc 30.4 g/dl (31.0-37.0); Mean Corpuscular Hemoglobin 22.1 pg (25.0-35.0); Mean Corpuscular Volume 73 fL (80-100); Monocytes # (Auto) 0.4 Thou/mm3 (0.0-0.8); Monocytes % (Auto) 5 % (0-12); Neutrophils # (Auto) 4.1 Thou/mm3 (1.8-7.7); Neutrophils % (Auto) 59 % (37-80); Nucleated Red Blood Cell % 0 /100 WBC (0); Platelet Count 288 Thou/mm3 (140-440); RDW Standard Deviation 47.9 fL (36.4-46.3); Red Blood Count 4.12 Miln/mm3 (4.00-5.20); White Blood Count 6.9 Thou/mm3 (3.6-11.0)
[2024-05-14 06:37] LABS: INR 1.1 (0.9-1.3); Prothrombin Time 11.7 Seconds (9.0-12.2)
[2024-05-14 06:39] LABS: Hepatitis A Antibody IgM Non Reactive (Non React)
[2024-05-14 06:57] LABS: Alanine Aminotransferase 148 U/L (10-49); Albumin, Serum 3.5 gm/dL (3.5-5.0); Albumin/Globulin Ratio 1.4 (1.2-2.2); Alkaline Phosphatase 74 U/L (46-116); Anion Gap 8 (7-16); Aspartate Amino Transferase 55 U/L (0-34); BUN/Creatinine Ratio 16 Ratio (12-20); Bilirubin,Total 0.3 mg/dL (0.3-1.2); Blood Urea Nitrogen 13 mg/dL (9-23); Calcium 8.6 mg/dL (8.3-10.6); Carbon Dioxide 24.8 mMol/L (20.0-31.0); Chloride 105 mMol/L (98-107); Creatinine (Component) 0.8 mg/dL (0.6-1.3); Free T4 (Free Thyroxine) 1.07 ng/dL (0.89-1.76); Globulin 2.5 gm/dL (2.3-3.5); Glucose 88 mg/dL (74-106); Magnesium 1.7 mg/dL (1.6-2.6); Osmolality,Calculated 274 (275-295); Phosphorous 2.3 mg/dL (2.4-5.1); Potassium 3.8 mMol/L (3.4-5.1); Sodium 138 mMol/L (136-145); eGFR > 60 See Note
[2024-05-14 09:20] LABS: Parathyroid Hormone Intact 59.5 pg/ml (18.5-88.0)
[2024-05-14] MEDS: cefTRIAXone/D5w 2gm 2 GM/50 ML BAG IV (09:32)
[2024-05-14] MEDS: PANTOPRAZOLE INJ 40 MG VIAL IV (09:32)
[2024-05-14] MEDS: HEPARIN SOD INJ 5000 UNIT/ML VIAL SC ×2 (09:33→21:42)
[2024-05-14 10:19] LABS: Vancomycin,Trough 7.6 mcg/mL (5.0-10.0)
[2024-05-14] MEDS: VANCOMYCIN/NS 1 GM IVPB 200 ML IV ×2 (10:44→21:44)
--- NOTE | 2024-05-14 15:40 | PC.PT ---
Attempt to initiate PT evaluation at 1500. Upon approached, patient is in the restroom. Patient states she can ambulation without problems. Skilled PT not indicated at this time. Will cancel PT evaluation.
--- NOTE | 2024-05-14 16:57 | ESDS_ITS ---
Planned Discharge Date 05/14/24 DS: Providers Provider Date of admission: 05/13/24 02:30 Primary care physician: Physician No Primary/Family Admitting Provider: Andrew Osorio MD Attending Provider on Admission: Niko Prieto DO Attending Provider on DC: Zachary Tao MD Discharging Provider: Zachary Tao MD DS: Diagnosis Problem List Completed Was Problem List Reviewed/Reconciled?: Yes Hospital Course Hospital Course Hospital course: Ms. Buckner is a 39-year-old female with past medical history significant for MRSA thigh abscess, cholecystitis status post ERCP and polysubstance abuse was brought to [facility] ED on 05/13/24 after being found obtunded in a home with other drug use individuals with an IV in her hand and obtunded. Patient was given Narcan by the police as well as EMS before arriving to the ED. Patient was admitted to the hospital for concern for sepsis which was ruled out due to no source of infection and patient did not appear to be septic. Patient initial presentation had leukocytosis and tachycardia however leukocytosis is immediately resolved the next day. Patient was also found to have transaminitis with AST and ALT 552 and 290 2 repeat ultrasound showed common bile duct 0.70 centimeters with no stones and no focal liver lesions. After 24 hours AST and ALT down trended to 55 and 148. Urine tox was positive for fentanyl, methamphetamine and marijuana patient was heavily counseled against drug use and was given appropriate education and social welfare clerk were provided. Due to history of IV drug use echo cardiogram was ordered which was negative for any valvular vegetations or signs of endocarditis. Patient is able to tolerate oral feeds, saturating on room air and back to her baseline as well as hemodynamically stable to be discharged home to self-care. Hospitalization Diagnosis #Sepsis, unknown source- ruled out #SIRS criteria, 2/4- tachycardia and leukocytosis #concern for endocarditis, IV drug use #History of MRSA abscess, 2020 #Elevated transaminases #Elevated ALP #History of cholecystitis #microcytic anemia #Elevated troponins - improved #Hyperphosphatemia #Hypocalcemia #Drug Overdose #Polysubstance abuse Assessment and plan discussed with my attending physician Dr. Conner Tao (PGY-1)- Internal medicine resident Time Spent with Patient Time attestation: Total time spent providing and/or coordinating discharge services: Exam Vital Signs Temp Pulse Resp BP Pulse Ox O2 Del Method O2 Flow Rate 98.1 F 64 17 147/98 H 97 Room Air 0 05/14/24 16:00 05/14/24 16:00 05/14/24 16:00 05/14/24 16:00 05/14/24 16:00 05/14/24 16:00 05/13/24 01:00 Discharge Plan Plan Patient Disposition: HOME (Self Care) Patient condition on transfer: Stable Care Plan Goals: -Follow up with your primary care outpatient with in 2 weeks -If your symptoms reoccur or worsen to return to ED promptly Prescriptions/Referrals Prescriptions/Med Rec: Discontinued ascorbic acid (vitamin C) [Vitamin C] 250 mg Tablet 500 mg PO BID Qty: 60 0RF zinc sulfate 50 mg zinc (220 mg) Capsule 220 mg PO QDAY Qty: 30 0RF sulfamethoxazole-trimethoprim [Bactrim DS] 800-160 mg tablet 1 tab PO BID Qty: 20 0RF Referrals: No Primary/Family,Physician [Primary Care Provider] - Patient/Caregiver Discharge Instructions Education Materials: Treating Drug Abuse and Addiction Print Language: Portuguese Stand Alone Forms: [employer] Info., Patient Portal Info Letter, Work/Release Restrictions Discharge Order Discharge Orders: Discharge (Routine); Ordered 05/14/24 Ordered By: Zachary Tao Quality Discharge Quality Measures VTE prophylaxis MD Attestestation MD Attestation I have discussed and was present for the essential components of the discharge history, physical examination, diagnosis, and discharge treatment plan with the resident. I agree with the patient's discharge care as documented by the resident and amended herein by me. Dirk Prieto DO. The patient understood all discharge instructions, all questions were answered satisfactorily. The patient was instructed to return to the Emergency Department is symptoms worsened or persisted. Patient was stable, afebrile, tolerating p.o. intake and ambulatory at time of discharge home. Of note, the patient was strenuously counseled on the cessation of illicit substances, to include fentanyl and methamphetamines. Although this document has been carefully reviewed, there may still be some phonetic and other typographical errors. These errors are purely grammatical due to imperfections in the software program and should not be construed in any way to compromise the substance of the patient's medical care during this visit.
--- NOTE | 2024-05-14 19:00 | ESPR_ITS ---
Documentation for date of: 05/14/24 Subjective Subjective Interval history: Patient was stable for discharge (see DC summary for 05/14/2024), pending the echo read as patient was eager to DC and was ok with late DC. DC order was placed at ~7pm however was missed, and RN did not feel comfortable discharging patient at 11pm. Patient was stable with no acute complaints. She will be discharged on 05/15 morning pending review of labs/vitals/bedside exam. Exam Vital Signs Temp Pulse Resp BP Pulse Ox O2 Del Method O2 Flow Rate 99.2 F 67 17 158/100 H 99 Room Air 0 05/15/24 08:00 05/15/24 08:00 05/15/24 08:00 05/15/24 08:00 05/15/24 08:00 05/15/24 08:00 05/13/24 01:00 Narrative Exam GENERAL: A&Ox3 . Awake, Not in acute distress however, mildy agitated NEURO: no focal neurological deficits HEENT: Atraumatic, Normocephalic. mucous membranes moist. Eyes open, symmetrical, & clear HEART: Normal Heart Sounds LUNGS: Clear to auscultation with no wheezing or crackles. ABDOMEN: soft, non-distended, non-tender, bowel sounds heard, no guarding or rebound tenderness SKIN: No Rash or ecchymoses EXTREMITIES: No edema, tenderness, able to move all 4 extremities, pedal pulses palpated Objective Labs 05/15/24 04:10 05/15/24 04:10 Labs: Laboratory Results - last 24 hr 05/15/24 04:10 WBC 6.0 RBC 4.57 Hgb 10.0 L Hct 32.2 L MCV 71 L MCH 21.9 L MCHC 31.1 RDW Std Deviation 45.6 Plt Count 332 D Neut % (Auto) 50 Lymph % (Auto) 40 [place] % (Auto) 8 Eos % (Auto) 2 Baso % (Auto) 1 Neut # (Auto) 3.0 Lymph # (Auto) 2.4 [place] # (Auto) 0.5 Eos # (Auto) 0.1 Baso # (Auto) 0.1 Immature Gran # (Auto) 0.01 H Absolute Nucleated RBC 0.00 Immature Gran % 0 Nucleated RBC % 0 Sodium 141 Potassium 4.1 Chloride 106 Carbon Dioxide 27.6 Anion Gap 7 BUN 11 Creatinine 0.8 Estim Creat Clear Calc 85.0 eGFR > 60 BUN/Creatinine Ratio 14 Glucose 87 Calculated Osmolality 279 Calcium 8.9 Corrected Calcium 9.2 Phosphorus 2.8 Magnesium 1.7 Total Bilirubin 0.3 AST 23 ALT 102 H Alkaline Phosphatase 70 Total Protein 6.2 Albumin 3.6 Globulin 2.6 Albumin/Globulin Ratio 1.4 ABG Interpretation ABG results: 05/12/24 21:45 VBG pH 7.28 L VBG pCO2 48 VBG pO2 58 VBG Base Excess -4 L Quality Measures Quality Measures VTE prophylaxis Assessment & Plan Assessment Current Active Medications: Generic Name Dose Route Start Last Admin Trade Name Freq PRN Reason Stop Dose Admin Acetaminophen 650 mg 05/13/24 02:30 Acetaminophen 325 Mg Tablet PO 06/12/24 02:29 Q6H PRN Fever >100 or pain 1-3 Heparin Sodium (Porcine) 5,000 unit 05/13/24 09:00 05/13/24 09:47 Heparin Sod Inj 5000 Unit/Ml Vial SC 05/27/24 08:59 5,000 unit Q12H JOSIAH Administration Vancomycin/Sodium Chloride 200 mls @ 120 mls/hr 05/13/24 10:00 Vancomycin/Ns 1 Gm Ivpb IV 05/20/24 09:59 Q12H JOSIAH Ceftriaxone Sodium/Dextrose 2 gm in 50 mls @ 100 mls/hr 05/14/24 09:00 Rocephin/D5w 2gm IV 05/21/24 08:59 QDAY [facility] Ondansetron HCl 4 mg 05/13/24 10:32 Ondansetron Inj 2 Mg/Ml Inj 2 Ml IV 06/12/24 10:31 Q6HR PRN NAUSEA OR VOMITING Protocol Pantoprazole Sodium 40 mg 05/13/24 09:00 05/13/24 09:47 Pantoprazole Inj 40 Mg Vial IV 06/12/24 08:59 40 mg QDAY JOSIAH Administration Pharmacy Consult 1 each 05/13/24 09:00 Vancomycin Pharmacy To Dose 1 Each Each IV 06/12/24 08:59 QDAY PRN CONSULT Plan Pamela is a 39 y/o female with PMHx of polysubstance abuse (meth, opioids, THC), MRSA thigh abscess, cholecystitis sees possible requiring ERCP, was transferred to [facility]) who is evaluated for SIRS criteria 2 out of 4, and elevated troponin. Patient was stable for discharge on 05/14. #SIRS criteria, 2/4- tachycardia and leukocytosis #concern for endocarditis, IV drug use #concern for sepsis, ruled out #History of MRSA abscess, 2020 DDx: Bloodstream infection, endocarditis -Patient is high risk for bloodstream infections including endocarditis due to history of IV drug use for many years -Pt states she has been injecting and smoking meth for several years -urinanalysis is postive for rare bacteria only and pt is asymptomatic -In 2020 Patient has had positive MRSA thigh abscess -Will review [place] criteria for endocarditis once echo is done, currently pt has 1 minor criteria only, BC are pending and echo is pending Plan: -prophylaxic Rocephin 2 g IV and Vanco started incase of endocarditis, will discontinue once BC or echo is negative -urine and blood cultures and MRSA pending -Tylenol for antipyretics -echo: No evidence of any valvular vegeations. TTE is suboptimal and consider ULISES if high index of suspicion. Normal LV size and function with EF 60-65% with mild LVH. Stage 1 diastolic dysfunction. Normal RV size and function. Estimated RVSP 38 mmHg. LA is moderately dilated. Mild MR and TR. Mild aortic valve sclerosis without stenosis. #Elevated transaminases, downtrending #Elevated ALP #History of cholecystitis -AST 542 and ALT 292, could be related to drug overdose, shock ~600s for ALP -High risk for hepatitis considering drug history -Pt is unable to confirm , per chart review Pt has hx of cholecytitis which required ERCP and pt was transferred due to CBD dilatation Plan: -Trend with CMP -Hepatitis panel negative -Tylenol level <2 -Liver ultrasound: Common bile duct 0.70 cm no stones; No focal liver lesions #microcytic anemia -Hgb 9.1, MCV 73 -no signs of active bleeding -Iron panel consistent with SHAD. Advised patient to start FeSO4 -monitor daily CBC #Elevated troponins - improved -troponins .069 -> 0.100 ->0.077 Patient is experiencing chest pain, likely related to demand ischemia #Hyperphosphatemia #Hypocalcemia -PTH 59.5 wnl -will monitor with daily labs #Drug Overdose #Polysubstance abuse -Urine tox is positive for fentanyl, THC, meth -Patient was found obtunded with IV near hand -Narcan given x2 and pt became more awake but still somnolent -refer to social media developer -counseled patient against drug use #Health Maintenance Disposition: Observation?telemetry DVT prophylaxis: Heparin every 12 hours GI prophylaxis: None indicated at this time Diet: Regular CODE STATUS: Full Patient seen and care discussed with my attending Dr. Prieto. Orlando Mesa MD PGY-3 Attending Provider Attestation/Addendum I have discussed and was present for the essential components of the history, physical examination, diagnosis, and treatment plan with the resident. I agree with the patient's care as documented by the resident and amended herein by me. Dirk Prieto, DO. Although this document has been carefully reviewed, there may still be some phonetic and other typographical errors. These errors are purely grammatical due to imperfections in the software program and should not be construed in any way to compromise the substance of the patient's medical care during this visit.
[2024-05-15] VITALS: BP 147/93; PULSE 60; PULSE 64; RESP 15; TEMP 37.3; O2SAT 99
[2024-05-15 04:00] VITALS: BP 138/89; PULSE 60; PULSE 65; RESP 20; TEMP 37; O2SAT 98
[2024-05-15 05:24] LABS: Basophils # (Auto) 0.1 Thou/mm3 (0.0-0.2); Basophils % (Auto) 1 % (0-2.5); Eosinophils # (Auto) 0.1 Thou/mm3 (0.0-0.5); Eosinophils % (Auto) 2 % (0-10); Hematocrit 32.2 % (36.0-46.0); Immature Granulocytes % (Auto) 0 % (0-0); Immature Granulocytes Auto 0.01 Thou/mm3 (0.00-0.00); Lymphocytes # (Auto) 2.4 Thou/mm3 (1.0-4.8); Lymphocytes % (Auto) 40 % (10-50); Mean Corpuscular HGB Conc 31.1 g/dl (31.0-37.0); Mean Corpuscular Hemoglobin 21.9 pg (25.0-35.0); Mean Corpuscular Volume 71 fL (80-100); Monocytes # (Auto) 0.5 Thou/mm3 (0.0-0.8); Monocytes % (Auto) 8 % (0-12); Neutrophils % (Auto) 50 % (37-80); Nucleated Red Blood Cell % 0 /100 WBC (0); Platelet Count 332 Thou/mm3 (140-440); RDW Standard Deviation 45.6 fL (36.4-46.3); Red Blood Count 4.57 Miln/mm3 (4.00-5.20)
[2024-05-15] MEDS: VANCOMYCIN/NS 1 GM IVPB 200 ML IV (05:53)
[2024-05-15 05:56] LABS: Alanine Aminotransferase 102 U/L (10-49); Albumin, Serum 3.6 gm/dL (3.5-5.0); Albumin/Globulin Ratio 1.4 (1.2-2.2); Alkaline Phosphatase 70 U/L (46-116); Anion Gap 7 (7-16); Aspartate Amino Transferase 23 U/L (0-34); BUN/Creatinine Ratio 14 Ratio (12-20); Bilirubin,Total 0.3 mg/dL (0.3-1.2); Blood Urea Nitrogen 11 mg/dL (9-23); Calcium 8.9 mg/dL (8.3-10.6); Calcium (Corrected) 9.2 mg/dL (8.5-10.1); Carbon Dioxide 27.6 mMol/L (20.0-31.0); Chloride 106 mMol/L (98-107); Creatinine (Component) 0.8 mg/dL (0.6-1.3); Globulin 2.6 gm/dL (2.3-3.5); Glucose 87 mg/dL (74-106); Magnesium 1.7 mg/dL (1.6-2.6); Osmolality,Calculated 279 (275-295); Phosphorous 2.8 mg/dL (2.4-5.1); Potassium 4.1 mMol/L (3.4-5.1); Sodium 141 mMol/L (136-145); Total Protein 6.2 gm/dL (5.7-8.2); eGFR > 60 See Note
[2024-05-15 06:00] VITALS: BMI 22.4
[2024-05-15 08:00] VITALS: BP 158/100; PULSE 67; PULSE 81; RESP 17; TEMP 37.3; O2SAT 99
--- NOTE | 2024-05-15 10:43 | CHAP ---
Patient was visited by a Spiritual Care Volunteer on 05/15/2024 between 0900 and 0945 and received comfort, encouragement, and prayer.
--- NOTE | 2024-05-15 12:11 | PD.RESDS ---
Planned Discharge Date 05/15/24 DS: Providers Provider Date of admission: 05/13/24 02:30 Primary care physician: Physician No Primary/Family Admitting Provider: Andrew Osorio MD Attending Provider on Admission: Niko Prieto DO Attending Provider on DC: Orlando Mesa MD Discharging Provider: Orlando Mesa MD DS: Diagnosis Problem List Completed Was Problem List Reviewed/Reconciled?: Yes Hospital Course Hospital Course Hospital course: Ms. Buckner is a 39-year-old female with past medical history significant for MRSA thigh abscess, cholecystitis status post ERCP and polysubstance abuse was brought to [facility] ED on 05/13/24 after being found obtunded in a home with other drug use individuals with an IV in her hand and obtunded. Patient was given Narcan by the police as well as EMS before arriving to the ED. Patient was admitted to the hospital for concern for sepsis which was ruled out due to no source of infection and patient did not appear to be septic. Patient initial presentation had leukocytosis and tachycardia however leukocytosis is immediately resolved the next day. Patient was also found to have transaminitis with AST and ALT 552 and 290 2 repeat ultrasound showed common bile duct 0.70 centimeters with no stones and no focal liver lesions. After 24 hours AST and ALT down trended to 55 and 148. Urine tox was positive for fentanyl, methamphetamine and marijuana patient was heavily counseled against drug use and was given appropriate education and manager social responsibility were provided. Due to history of IV drug use echo cardiogram was ordered which was negative for any valvular vegetations or signs of endocarditis. Patient is able to tolerate oral feeds, saturating on room air and back to her baseline as well as hemodynamically stable to be discharged home to self-care. Hospitalization Diagnosis #Sepsis, unknown source- ruled out #SIRS criteria, 2/4- tachycardia and leukocytosis #concern for endocarditis, IV drug use #History of MRSA abscess, 2020 #Elevated transaminases #Elevated ALP #History of cholecystitis #microcytic anemia #Elevated troponins - improved #Hyperphosphatemia #Hypocalcemia #Drug Overdose #Polysubstance abuse Assessment and plan discussed with my attending physician Dr. Conner Tao (PGY-1)- Internal medicine resident Status at Discharge Cognitive/behavioral status at discharge: AAOx3 Time Spent with Patient Time attestation: Total time spent providing and/or coordinating discharge services: Time spent: Greater than 30 minutes Exam Vital Signs Temp Pulse Resp BP Pulse Ox O2 Del Method O2 Flow Rate 99.2 F 67 17 158/100 H 99 Room Air 0 05/15/24 08:00 05/15/24 08:00 05/15/24 08:00 05/15/24 08:00 05/15/24 08:00 05/15/24 08:00 05/13/24 01:00 Narrative Exam GENERAL: A&Ox3 . Awake, Not in acute distress however, mildy agitated NEURO: no focal neurological deficits HEENT: Atraumatic, Normocephalic. mucous membranes moist. Eyes open, symmetrical, & clear HEART: Normal Heart Sounds LUNGS: Clear to auscultation with no wheezing or crackles. ABDOMEN: soft, non-distended, non-tender, bowel sounds heard, no guarding or rebound tenderness SKIN: No Rash or ecchymoses EXTREMITIES: No edema, tenderness, able to move all 4 extremities, pedal pulses palpated Discharge Plan Plan Patient Disposition: HOME (Self Care) Patient condition on transfer: Stable Care Plan Goals: -Follow up with your primary care outpatient with in 2 weeks -If your symptoms reoccur or worsen to return to ED promptly Prescriptions/Referrals Prescriptions/Med Rec: Discontinued ascorbic acid (vitamin C) [Vitamin C] 250 mg Tablet 500 mg PO BID Qty: 60 0RF zinc sulfate 50 mg zinc (220 mg) Capsule 220 mg PO QDAY Qty: 30 0RF sulfamethoxazole-trimethoprim [Bactrim DS] 800-160 mg tablet 1 tab PO BID Qty: 20 0RF Referrals: No Primary/Family,Physician [Primary Care Provider] - Patient/Caregiver Discharge Instructions Discharge Activity: resume usual activities Education Materials: Treating Drug Abuse and Addiction Print Language: Mohawk Stand Alone Forms: [employer] Award Info., Patient Portal Info Letter, Work/Release Restrictions Discharge Order Discharge Orders: Discharge (Routine); Ordered 05/14/24 Ordered By: Zachary Tao Quality Discharge Quality Measures VTE prophylaxis
== END 2024-05-15 09:19 | disposition home or self-care (01) ==
LOC: SERX 21:06 → SERHOLD 05-13 05:19 → S3NX 05-14 08:34 → SERHOLD 05-22 07:57 → S3NX 05-22 07:58 → S2SX 05-22 07:58
PROVIDERS: Student in an Organized Health Care Education/Training Program; Admitting Provider Internal Medicine; Emergency Provider Emergency Medicine; Visit Provider Student in an Organized Health Care Education/Training Program
DX: T50.901A Poisoning by unspecified drugs, medicaments and biological substances, accidental (unintentional), initial encounter (principal); Z86.14 Personal history of Methicillin resistant Staphylococcus aureus infection; R74.01 Elevation of levels of liver transaminase levels; Z87.19 Personal history of other diseases of the digestive system; D64.9 Anemia, unspecified; R79.89 Other specified abnormal findings of blood chemistry; E83.39 Other disorders of phosphorus metabolism; E83.51 Hypocalcemia; R00.0 Tachycardia, unspecified; Y92.9 Unspecified place or not applicable; F19.10 Other psychoactive substance abuse, uncomplicated; R65.10 Systemic inflammatory response syndrome (SIRS) of non-infectious origin without acute organ dysfunction; F15.10 Other stimulant abuse, uncomplicated
CPT/HCPCS: 36415; 70450; 71045; 71260; 76700; 80048; 80053; 80061; 80074; 80202; 80307; 80320; 80329; 81001; 81025; 82550; 82728; 82803; 83540; 83550; 83605; 83615; 83690; 83735; 83880; 83970; 84100; 84145; 84439; 84443; 84484; 85025; 85610; 85730; 86703; 86850; 86900; 86901; 87040; 87081; 87086; 87811; 92526; 92610; 93005; 93306; 96127; 96361; 96365; 96366; 96367; 96372; 96375; 99291; A4649; G0378; J0360; J0612; J0696; J1643; J2405; J2470; J2543; J3370; J3371; J3475; J3480; J3490; J7030; J7050; Q9967; A9270; G0480

== ENCOUNTER 2024-11-26 19:42 | Emergency (ER) | payer MEDICAID, SELFPAY ==
[2024-11-26 20:34] VITALS: BP 177/90; PULSE 94; RESP 20; TEMP 36.9; O2SAT 100
--- NOTE | 2024-11-26 20:36 | XR_ITS ---
Examination: CT brain head without contrast. 2-D sagittal coronal reconstructions Date and time of exam:November 26, 2024, 9 hrs. Indications headaches nausea beginning 2 days ago CTDI: vol (mGy):47.4 DLP: (mGycm):923 Technique: Multiple CT axial sections of the brain have been obtained, 5 mm slice thickness. Contrast has not been administered. 2-D sagittal, coronal reconstructions have been obtained Low dose protocols were performed. One or more of the following dose reduction techniques were used; automated exposure control, adjustment of the mA and/or KV according to patient size, use of iterative reconstruction technique. Findings: No significant ventricular enlargement. Intra-axial or extra-axial hemorrhage density is not seen. No mass effect or midline shift Basal cisterns are not remarkable. Fourth ventricle is midline. Cranial vault intact. Impression: Negative for acute hemorrhage, mass effect or midline shift Advise clinical correlation follow-up accordingly
--- NOTE | 2024-11-26 20:37 | PD.EDRME ---
Rapid Medical Screening Exam RME Arrival date/time: 11/26/24 19:42 This is a case of 39-year-old female with history of hypokalemia sepsis and hypertension came in in the emergency room due to headache on and off for 2 days associated with nausea vomiting denies any blurring of vision numbness weakness tingling sensation persistence of the symptoms this patient decided to start consult here in the emergency room Chief Complaint: Headache Time Seen by Provider: 11/26/24 20:36 Vital signs: Vital Signs Temperature 98.5 F 11/26/24 20:34 Pulse Rate 94 11/26/24 20:34 Respiratory Rate 20 11/26/24 20:34 Blood Pressure 177/90 H 11/26/24 20:34 Pulse Oximetry (%) 100 11/26/24 20:34 Oxygen Delivery Method Room Air 11/26/24 20:34
[2024-11-26] MEDS: ONDANSETRON ODT 4 MG TABRAP PO (20:48)
[2024-11-26] MEDS: HYDROcodone/APAP 5/325 TABLET 1 TAB PO (20:48)
[2024-11-26 21:06] LABS: Basophils # (Auto) 0.1 Thou/mm3 (0.0-0.2); Basophils % (Auto) 1 % (0-2.5); Eosinophils # (Auto) 0.2 Thou/mm3 (0.0-0.5); Eosinophils % (Auto) 2 % (0-10); Hematocrit 28.6 % (36.0-46.0); Hemoglobin 8.9 g/dL (12.0-16.0); Immature Granulocytes Auto 0.04 Thou/mm3 (0.00-0.00); Lymphocytes # (Auto) 3.2 Thou/mm3 (1.0-4.8); Lymphocytes % (Auto) 33 % (10-50); Mean Corpuscular HGB Conc 31.1 g/dl (31.0-37.0); Mean Corpuscular Hemoglobin 23.4 pg (25.0-35.0); Mean Corpuscular Volume 75 fL (80-100); Monocytes # (Auto) 0.7 Thou/mm3 (0.0-0.8); Monocytes % (Auto) 7 % (0-12); Neutrophils # (Auto) 5.5 Thou/mm3 (1.8-7.7); Neutrophils % (Auto) 57 % (37-80); Nucleated Red Blood Cell # 0.00 Thou/mm3 (0.00-0.00); Nucleated Red Blood Cell % 0 /100 WBC (0); Platelet Count 287 Thou/mm3 (140-440); RDW Standard Deviation 49.1 fL (36.4-46.3); Red Blood Count 3.81 Miln/mm3 (4.00-5.20); White Blood Count 9.7 Thou/mm3 (3.6-11.0)
[2024-11-26 21:27] LABS: Alanine Aminotransferase 16 U/L (10-49); Albumin, Serum 4.0 gm/dL (3.5-5.0); Albumin/Globulin Ratio 1.8 (1.2-2.2); Alkaline Phosphatase 60 U/L (46-116); Anion Gap 9 (7-16); Aspartate Amino Transferase 15 U/L (0-34); BUN/Creatinine Ratio 19 Ratio (12-20); Bilirubin,Total 0.2 mg/dL (0.3-1.2); Blood Urea Nitrogen 15 mg/dL (9-23); Calcium 9.6 mg/dL (8.3-10.6); Calcium (Corrected) 9.6 mg/dL (8.5-10.1); Carbon Dioxide 26.5 mMol/L (20.0-31.0); Chloride 107 mMol/L (98-107); Creatinine (Component) 0.8 mg/dL (0.6-1.3); Estimated Creatinine Clearance 93.7 mL/min (>60); Globulin 2.2 gm/dL (2.3-3.5); Glucose 102 mg/dL (74-106); Osmolality,Calculated 283 (275-295); Potassium 4.1 mMol/L (3.4-5.1); Sodium 142 mMol/L (136-145); Total Protein 6.2 gm/dL (5.7-8.2); eGFR > 60 See Note
[2024-11-26 21:33] LABS: Collection Type, Urine Voided
[2024-11-26 21:48] LABS: Bacteria,Urine Rare; Bilirubin,Urine Negative (Negative); Blood,Urine Negative (Negative); Clarity,Urine Clear (Clear/Hazy); Color,Urine Lt-Yellow (Lt Yel-Yel); Glucose, Urine Negative (Negative); Ketones,Urine Negative (Negative); Leukocyte Esterase,Urine Positive (Negative); Nitrite,Urine Negative (Negative); PH,Urine 5.5 (5.0-7.0); Protein,Urine Negative (Neg - Trace); RBC,Urine 1 /hpf (0-3); Specific Gravity,Urine 1.017 (1.001-1.035); Squamous Epithelial Cell,Urine 1 /hpf (0-5); Urobilinogen,Urine Negative mg/dL (0.0-1.0); WBC,Urine 10 /hpf (0-5)
[2024-11-26 22:07] VITALS: BP 142/99; BP 149/99; PULSE 78; RESP 20; TEMP 37.1; O2SAT 99
--- NOTE | 2024-11-26 23:38 | EDNOTE_ITS ---
ED Headache RME/HPI General Chief Complaint: Headache Stated Complaint: HEADACHE, FACE HURTS Time Seen by Provider: 11/26/24 20:36 Arrival date/time: 11/26/24 19:42 RME / HPI RME / HPI Narrative: 11/26/24 19:42 This is a case of 39-year-old female with history of hypokalemia sepsis and hypertension came in in the emergency room due to headache on and off for 2 days associated with nausea vomiting denies any blurring of vision numbness weakness tingling sensation persistence of the symptoms this patient decided to start consult here in the emergency room DR. 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 Also complaints of occasional throbbing component without nausea, vomiting, fever, or chills. Denies URI-like symptoms. Reports similar previous SALAZAR's. PMH: HTN, Endocarditis, sinusitis, hemorrhagic cystitis. PSH: . Social: Occassional Marijuana use, reports last Methamphetamine use 1 week ago, No alcoholism. Related Data Previous Rx's ?Medication ?Instructions ?Recorded xwmzurspjl-gizjjuz-cibigtgn 50 1 cap PO Q6H PRN pain # 20 caps 11/26/24 mg-325 mg-40 mg capsule promethazine 12.5 mg tablet 12.5 mg PO TID PRN nausea and 11/26/24 vomiting #14 tabs Allergies Allergy/AdvReac Type Severity Reaction Status Date / Time No Known Allergies Allergy Verified 11/11/23 15:22 Review of Systems Review of Systems Systems Reviewed: All systems reviewed, normal except as documented Past Medical History Past Medical History CARDIAC: Positive Hypertension RESPIRATORY: Positive Asthma REPRODUCTIVE: Positive Previous Pregnancies Surgical History SURGICAL: Positive Section Social History SECOND HAND EXPOSURE: Yes SUBSTANCE USE: methamphetamine ED Exam Narrative Physical exam: GEN. APPEARANCE: The patient is alert awake oriented X-3 in no distress, but when awake, complains of moderate SALAZAR, lying down comfortably, does not look ill/toxic. Patient has good eye contact. Patient is cooperative. VITALS: All vitals were reviewed and the pulse ox is 99% on room air which is normal according to my interpretation. HEENT: Normocephalic, atraumatic. Pupils are equal and reactive. Fundoscpoic exam normal Oral mucosa is moist. Patent Nares. Tenderness to percussion over BL maxillary sinuses NECK: Supple, nontender, no thyromegaly, no meningismus, no JVD, no step offs CHEST: Symmetrical, atraumatic, and with equal expansion , Nontender on palpation no deformity and no crepitus. CARDIOVASCULAR: Heart regular rhythm no murmur or gallop rub or extra beats. LUNGS: Clear to auscultation bilaterally with symmetrical chest rise. No laboring tachypnea or wheezing. No intercostal subcostal retraction. No rales and no rhonchi. ABDOMEN: Soft, flat, nontender to palpation, no guarding or rebound tenderness. There are no abnormal masses palpated. Active and normal bowel sounds. EXTREMITIES: Nontender. No edema. No cyanosis. Patient is able to move all 4 extremities well, with full ROM and good CSM. SKIN: Warm and dry, no jaundice or rashes noted. MUSCULOSKELETAL: No lubar or midline bony tenderness. There is no CVA tenderness. No paraspinal muscle spasm or tenderness. NEURO: Patient is SPARKS x 4, Cranial nerves II through XII grossly intact. There is no focal neurologic deficits noted. GCS is 15, PNS and LOCOMOTIVE FIRER appear grossly intact. PSYCHIATRIC: Patient is in normal mood and affect, cooperative, no SI or HI or hallucinations. Course Quality Measures none Orders Category Date Time Status CT head/brain wo con Stat Exams 11/26/24 20:36 Completed CBC Stat Lab 11/26/24 20:43 Completed CMP [Comprehensive Metabolic Panel] Stat Lab 11/26/24 20:43 Completed Urinalysis Stat Lab 11/26/24 21:25 Completed HYDROcodone*/APAP 5/325 [Crouse 5/325] Med 11/26/24 20:36 Discontinued 1 tab PO X1 ONE Ketorolac Inj [Toradol Inj] Med 11/26/24 23:37 Discontinued 30 mg IM X1 ONE Ondansetron Odt [Zofran Odt] Med 11/26/24 20:36 Discontinued 4 mg PO X1 ONE Vital Signs Vital signs: Vital Signs Temperature 98.5 F 11/26/24 20:34 Pulse Rate 94 11/26/24 20:34 Respiratory Rate 20 11/26/24 20:34 Blood Pressure 177/90 H 11/26/24 20:34 Pulse Oximetry (%) 100 11/26/24 20:34 Oxygen Delivery Method Room Air 11/26/24 20:34 Headache MDM Narrative MDM Narrative:: Scribe Attestation: I, Tiffany Wagner, am scribing for and in the presence of Dr. Bach. Provider Notation: Although this document has been carefully reviewed, there may still be some phonetic and other typographical errors. These errors are purely grammatical due to imperfections in the software program and should not be construed in any way to compromise the substance of the patient's medical care during this visit. 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 Also complaints of occasional throbbing component without nausea, vomiting, fever, or chills. Patient non-toxic and resting comfortably after hydrocodone, and remained neurologically intact. CT of the brain unremarkable for acute process. Prese ntation persisting with tension SALAZAR although possibly sinusitis, CT scan without evidence without thereof. Will place on fiorinal for tension SALAZAR. Precautionary instructions issued. Patient data External records reviewed:: [facility] previous records (Reviewed prior ED records from 05/12/24. Patient was seen for Endocarditis.) Clinical information provided by:: patient Social determinants that could affect healthcare access:: none Patient has the following chronic illnesses:: Hypertension, Asthma How is presenting disease/condition affected by chronic disease/condition?: exacerbated by Evaluation data The following diagnostics were reviewed and interpreted by me:: lab results and radiology exam(s) Lab and/or radiology exams considered but not ordered:: None Interpretation Summary: RADIOLOGY Head/Brain CT: Findings: No significant ventricular enlargement. Intra-axial or extra-axial hemorrhage density is not seen. No mass effect or midline shift Basal cisterns are not remarkable. Fourth ventricle is midline. Cranial vault intact. Impression: Negative for acute hemorrhage, mass effect or midline shift Advise clinical correlation follow-up accordingly Medications / Prescriptions Medications or Prescriptions considered but not ordered:: None Medication administrations:: Medication Administration History Discontinued Medications Hydrocodone Bitart/Acetaminophen (Hydrocodone/Apap 5/325 Tablet) 1 tab PO X1 ON E Stop: 11/26/24 20:37 Last Admin: 11/26/24 20:48 Dose: 1 tab Documented By: Ketorolac Tromethamine (Ketorolac Inj 30 Mg/Ml Vial) 30 mg IM X1 ONE Stop: 11/26/24 23:38 Last Admin: 11/26/24 23:50 Dose: 30 mg Documented By: EF Ondansetron HCl (Ondansetron Odt 4 Mg Tabrap) 4 mg PO X1 ONE; Protocol Stop: 11/26/24 20:37 Last Admin: 11/26/24 20:48 Dose: 4 mg Documented By: See above if any Consultations Consultation(s) initiated? (list below): No Diagnosis Differential diagnosis headache: migraine, tension headache, headache and sinusitis Most likely diagnosis given after review of the tests above:: Tension SALAZAR Admission Indicated Admission indicated?: not indicated Explain why admission is indicated or not indicated:: Patient does not meet admission criteria Admission Request Was there a request for admission?: No Disposition Plan Disposition Plan: Discharge Discharge Attestation Discharge Attestation: The patient and all family members were given an opportunity to ask questions and understood the discharge instructions. Discharge instructions specifically effects, indications for sooner follow up or return to the emergency department, and the expected course of current diagnosis. Patient condition: Stable Discharge Plan Plan Patient Disposition: HOME (Self Care) Discharge Disposition comment: Stable Prescriptions/Referrals Prescriptions/Med Rec: New fnlayvzyym-xdwmcfh-lzslpyfl 50-325-40 mg capsule 1 cap PO Q6H PRN (Reason: pain) Qty: 20 0RF promethazine 12.5 mg tablet 12.5 mg PO TID PRN (Reason: nausea and vomiting) Qty: 14 0RF Rx Instructions: May also take for headache. Referrals: Nathan Leroy MD [Primary Care Provider, Family Practice] - In 1 week Problem List Clinical Impression: Acute tension headache Patient/Caregiver Discharge Instructions Discharge Activity: activity as tolerated Diet Instructions: Force fluids maintain adequate rest Education Materials: ED Headache, Tension Additional Instructions: Dark room, cool compresses to temporal region. Medications as directed. Follow-up with primary care doctor as needed Return if worse Print Language: [place] Stand Alone Forms: Alyse Award Info., Patient Portal Info Letter
[2024-11-26] MEDS: KETOROLAC INJ 30 MG/ML VIAL IM (23:50)
[2024-11-27 00:16] VITALS: RESP 16
== END 2024-11-27 00:19 | disposition home or self-care (01) ==
PROVIDERS: Nurse Practitioner Family; Emergency Provider Emergency Medicine; PCP Family Medicine
DX: G44.209 Tension-type headache, unspecified, not intractable (principal)
CPT/HCPCS: 36415; 70450; 80053; 81001; 85025; 96372; 99283; J1885; Q0162; A9270

== ENCOUNTER 2024-12-01 07:43 | Emergency (ER) | payer MEDICAID, SELFPAY ==
[2024-12-01 07:44] VITALS: BMI 22.9
[2024-12-01 07:48] VITALS: BP 197/129; BP 218/127; PULSE 74; RESP 18; TEMP 36.8; O2SAT 100; BMI 23.1
--- NOTE | 2024-12-01 08:04 | PD.EDHA ---
ED Headache RME/HPI General Chief Complaint: Headache Stated Complaint: ''HEAD HURTS'' X4 DAYS Time Seen by Provider: 12/01/24 07:48 Arrival date/time: 12/01/24 07:43 This is a 39-year-old female that comes into the emergency room with complaints of headache for the past 4 days. Patient states that she was recently here last week with similar symptoms. Patient states she has not seen her primary doctor in a while. Patient complains of pain that is like a bandlike pain around her entire head mostly frontal area. Patient denies any fever, nausea, vomiting, diarrhea patient denies any blurry vision double vision loss of vision, patient denies Valsalva headache, denies positional headache, patient denies any focal weakness, slurred speech, jaw claudication, dizziness, paresthesias. Patient reports history of methamphetamine use but states she has not used meth in a while. Patient states that she has been told she has high blood pressure but has not been prescribed medication for this. Related Data Previous Rx's ?Medication ?Instructions ?Recorded fhygpgppzs-zewcusy-kspauiad 50 1 cap PO Q6H PRN pain #20 caps 11/26/24 mg-325 mg-40 mg capsule promethazine 12.5 mg tablet 12.5 mg PO TID PRN nausea and 11/26/24 vomiting #14 tabs Allergies Allergy/AdvReac Type Severity Reaction Status Date / Time No Known Allergies Allergy Verified 12/01/24 07:46 Review of Systems Review of Systems Systems Reviewed: All systems reviewed, normal except as documented Past Medical History Past Medical History CARDIAC: Positive Hypertension RESPIRATORY: Positive Asthma REPRODUCTIVE: Positive Previous Pregnancies Surgical History SURGICAL: Positive Section Social History SECOND HAND EXPOSURE: Yes SUBSTANCE USE: methamphetamine ED Exam Narrative Physical exam: VITAL SIGNS: Reviewed. GENERAL APPEARANCE: Alert and interactive, follows commands, no acute distress, HEAD AND FACE: Non-traumatic. ENT: PERRL, conjuctiva pink and clear, eyelid no trauma, Mucous membrane moist. NECK: Supple, nontender, no nuchal rigidity. CHEST: No tenderness, no crepitus, no paradoxical movement, no retractions. LUNGS: Clear, well ventilated, symmetric, no rales, no wheezing, no rhonchi, no stridor, good breath sounds bilaterally. HEART: Regular rate, regular rhythm, no murmur, no gallops. ABDOMEN: Soft, nondistended, no guarding, nontender NEUROLOGICAL: Gross motor function intact sensory function intact, Appropriate for age. MUSCULOSKELETAL: low back nontender, full range of motion. EXTREMITIES: No redness no swelling no skin breakdown on bilateral foot and leg. Distal neurovascular status intact bilateral foot SKIN: Color pink, dry, no rash Course Quality Measures none Orders Category Date Time Status Acetaminophen Tab [Tylenol ES Tab] Med 12/01/24 08:03 Discontinued 1,000 mg PO X1 ONE DiphenhydrAMINE INJ [Benadryl Inj] Med 12/01/24 08:03 Discontinued 25 mg IM X1 ONE Ketorolac Inj [Toradol Inj] Med 12/01/24 08:03 Discontinued 60 mg IM X1 ONE Metoclopramide [Reglan] Med 12/01/24 08:03 Discontinued 10 mg PO X1 ONE Vital Signs Vital signs: Vital Signs Temperature 98.2 F 12/01/24 07:48 Pulse Rate 74 12/01/24 07:48 Respiratory Rate 18 12/01/24 07:48 Blood Pressure 218/127 H 12/01/24 07:48 Pulse Oximetry (%) 100 12/01/24 07:48 Oxygen Delivery Method Room Air 12/01/24 07:48 Headache MDM Narrative MDM Narrative:: I spoke to patient at length about the importance of having blood pressure treated by primary provider. Told her to make an appointment with primary provider in 1 to 2 days. I explained to her that it is important to have a physical at least once or twice a year and be followed by primary provider. Patient verbalized understanding. Patient recently had a workup done and had a CT scan and it was negative. Patient has no new symptoms patient has no headache red flags. Will treat patient with Toradol, Reglan, Tylenol and Benadryl. If symptoms improve will send patient home and have patient follow-up with primary provider in 1 to 2 days. [place] to emergency room symptoms change or worsen. Patient comfortable plan of care mendoza dictation: Although this document has been carefully reviewed, there may still be some phonetic and other typographical errors. These errors are purely grammatical due to imperfections in the software program and should not be construed in any way to compromise the substance of the patient's medical care during this visit. Patient data External records reviewed:: [facility] previous records Clinical information provided by:: patient Social determinants that could affect healthcare access:: none Patient has the following chronic illnesses:: See HPI How is presenting disease/condition affected by chronic disease/condition?: no chronic disease Evaluation data The following diagnostics were reviewed and interpreted by me:: other (specify) (none ) Lab and/or radiology exams considered but not ordered:: see note Interpretation Summary: see note Medications / Prescriptions Medications or Prescriptions considered but not ordered:: none Medication administrations:: Medication Administration History Discontinued Medications Acetaminophen (Acetaminophen 500 Mg Tablet) 1,000 mg PO X1 ONE Stop: 12/01/24 08:04 Last Admin: 12/01/24 08:18 Dose: 1,000 mg Documented By: SHAWN Diphenhydramine HCl (Diphenhydramine Inj 50 Mg/Ml Vial) 25 mg IM X1 ONE Stop: 12/01/24 08:04 Last Admin: 12/01/24 08:19 Dose: 25 mg Documented By: SHAWN Comments: PT DENIES AT THIS TIME; PT REQUESTING THIS MED AT THIS TIME. PT MADE AWARE OF RISKS OF MEDS. Ketorolac Tromethamine (Ketorolac Inj 60 Mg/2 Ml Vial) 60 mg IM X1 ONE Stop: 12/01/24 08:04 Last Admin: 12/01/24 08:20 Dose: 60 mg Documented By: SHAWN Metoclopramide HCl (Metoclopramide 5 Mg Tablet) 10 mg PO X1 ONE Stop: 12/01/24 08:04 Last Admin: 12/01/24 08:18 Dose: 10 mg Documented By: SHAWN see mar Consultations Consultation(s) initiated? (list below): No Diagnosis Differential diagnosis headache: migraine, tension headache and sinusitis Most likely diagnosis given after review of the tests above:: headache Admission Indicated Admission indicated?: not indicated Admission Request Was there a request for admission?: No Disposition Plan Disposition Plan: Discharge Discharge Attestation Discharge Attestation: The patient and all family members were given an opportunity to ask questions and understood the discharge instructions. Discharge instructions specifically effects, indications for sooner follow up or return to the emergency department, and the expected course of current diagnosis. Patient condition: Stable Discharge Plan Plan Patient Disposition: HOME (Self Care) Patient condition on transfer: Stable Prescriptions/Referrals Prescriptions/Med Rec: No Action tugazwrfnw-wzwmkjv-pbzupnnk 50-325-40 mg capsule 1 cap PO Q6H PRN (Reason: pain) Qty: 20 0RF promethazine 12.5 mg tablet 12.5 mg PO TID PRN (Reason: nausea and vomiting) Qty: 14 0RF Rx Instructions: May also take for headache. Referrals: Nathan Leroy MD [Primary Care Provider, Family Practice] - In 1 week Problem List Clinical Impression: Headache Patient/Caregiver Discharge Instructions Discharge Activity: activity as tolerated Education Materials: Self-Care for Headaches Additional Instructions: Make an appointment with primary provider in 1 to 2 days. Come to the emergency room symptoms change or worsen Print Language: Citizen Of [place] Stand Alone Forms: Alyse Award Info., Patient Portal Info Letter PA/FULL STACK SOFTWARE ENGINEER Supervising Physician PA/FULL STACK SOFTWARE ENGINEER Supervising Physician: hiro
[2024-12-01] MEDS: METOCLOPRAMIDE 5 MG TABLET 10 MG PO (08:18)
[2024-12-01] MEDS: ACETAMINOPHEN 500 MG TABLET 1000 MG PO (08:18)
[2024-12-01] MEDS: KETOROLAC INJ 60 MG/2 ML VIAL IM (08:20)
[2024-12-01 08:51] VITALS: BP 166/106; PULSE 78; RESP 18; O2SAT 100
== END 2024-12-01 09:36 | disposition home or self-care (01) ==
PROVIDERS: Emergency Provider Emergency Medicine; PCP Family Medicine
DX: R51.9 Headache, unspecified (principal); I10 Essential (primary) hypertension; J45.909 Unspecified asthma, uncomplicated
CPT/HCPCS: 96372; 99283; J1200; J1885; A9270